=== PATIENT | female | born 1990 | race American Indian/Alaskan Native ===

== ENCOUNTER 2016-11-25 00:26 | Emergency (ER) | payer SELFPAY ==
[2016-11-25] MEDS ORDERED: TYLENOL PO ONE (03:59)
[2016-11-25] MEDS ORDERED: TORADOL IM ONE (03:59)
--- NOTE | 2016-11-25 04:04 | Emergency Department Report ---
ED Lower Extremity HPI - General Chief Complaint: Extremity Injury, Lower Stated Complaint: LEFT ANKLE INJURY/SWELLING Time Seen by Provider: 11/25/16 03:54 Source: patient, RN notes reviewed Mode of arrival: Wheelchair Limitations: No Limitations - History of Present Illness Initial Comments: This is a 26-year-old female, previously unknown to me, she presents to the ER with a left ankle inversion injury. Her significant other was seen here earlier on today for symptomatic hypoglycemia, and she reports that she rolled her ankle while assisting her boyfriend. The pain is achy, and increases with palpation and range of motion, and decreases with rest. It does not radiate anywhere. There is no knee pain. She reports she is not . She has no other injuries. She has no other complaints. MD Complaint: ankle injury -: Sudden Injury: Ankle: Left Type of Injury: inversion Place: other Severity: moderate Improves With: rest Worsens With: movement, palpation Context: fall Associated Symptoms: swelling - Related Data Previous Rx's Medication Instructions Recorded Last Taken Type Acetaminophen/Codeine [Tylenol #3] 1 tab PO Q6H PRN #20 tab 06/19/15 Unknown Rx Cyclobenzaprine [Flexeril 10 MG 10 mg PO TID PRN #30 tablet 06/19/15 Unknown Rx TAB] Ibuprofen [Motrin 600 MG tab] 600 mg PO Q8H PRN #30 tablet 10/19/16 Unknown Rx Ketorolac [Toradol] 10 mg PO Q6H PRN #20 tablet 11/25/16 Unknown Rx Allergies Allergy/AdvReac Type Severity Reaction Status Date / Time No Known Allergies Allergy Verified 06/19/15 01:39 ED Review of Systems ROS: Stated complaint: LEFT ANKLE INJURY/SWELLING Other details as noted in HPI Constitutional: denies: malaise Eyes: denies: vision change ENT: denies: epistaxis Respiratory: denies: cough Cardiovascular: denies: chest pain Gastrointestinal: denies: abdominal pain Genitourinary: denies: urgency, dysuria Musculoskeletal: arthralgia, myalgia Skin: denies: rash, lesions Neurological: denies: as per HPI, weakness Psychiatric: denies: anxiety ED Past Medical Hx - Past Medical History Previous Medical History?: Yes Hx Psychiatric Treatment: Yes (anxiety) Hx Asthma: Yes (bronchitis) Additional medical history: BRONCHITIS. ANEMIA - Surgical History Past Surgical History?: No - Social History Smoking Status: Former Smoker Substance Use Type: Marijuana - Medications Home Medications: Home Medications Medication Instructions Recorded Confirmed Last Taken Type Acetaminophen/Codeine [Tylenol #3] 1 tab PO Q6H PRN #20 tab 06/19/15 Unknown Rx Cyclobenzaprine [Flexeril 10 MG 10 mg PO TID PRN #30 tablet 06/19/15 Unknown Rx TAB] Ibuprofen [Motrin 600 MG tab] 600 mg PO Q8H PRN #30 tablet 10/19/16 Unknown Rx Ketorolac [Toradol] 10 mg PO Q6H PRN #20 tablet 11/25/16 Unknown Rx ED Physical Exam - General Limitations: Physical Limitation General appearance: alert, in no apparent distress - Head Head exam: Present: atraumatic, normocephalic - Eye Eye exam: Present: normal appearance, EOMI. Absent: nystagmus - ENT ENT exam: Present: normal exam, normal orophraynx, mucous membranes moist, normal external ear exam - Neck Neck exam: Present: normal inspection, full ROM. Absent: tenderness, meningismus - Respiratory Respiratory exam: Present: normal lung sounds bilaterally. Absent: respiratory distress, wheezes, rales, rhonchi, stridor, chest wall tenderness, accessory muscle use, decreased breath sounds, prolonged expiratory - Cardiovascular Cardiovascular Exam: Present: regular rate, normal rhythm, normal heart sounds. Absent: bradycardia, tachycardia, irregular rhythm, systolic murmur, diastolic murmur, rubs, gallop - GI/Abdominal GI/Abdominal exam: Present: soft, normal bowel sounds. Absent: distended, tenderness, guarding, rebound, rigid, pulsatile mass - Extremities Exam Extremities exam: Present: normal inspection, full ROM, tenderness, normal capillary refill, other (the left lateral ankle is tender on the lateral malleolus and the medial malleolus. The compartments are soft. There are 2+ pulses in 4 extremities, the knee is nontender.). Absent: pedal edema, joint swelling, calf tenderness - Back Exam Back exam: Present: normal inspection, full ROM. Absent: tenderness, CVA tenderness (R), CVA tenderness (L), muscle spasm, paraspinal tenderness, vertebral tenderness - Neurological Exam Neurological exam: Present: alert, oriented X3, other (Extraocular movements intact. Tongue midline. No facial droop. Facial sensation intact to light touch in the V1, V2, V3 distribution bilaterally. 5 and 5 strength in 4 extremities.. Sensation is intact to light touch in 4 extremities.). Absent: motor sensory deficit - Psychiatric Psychiatric exam: Present: normal affect, normal mood - Skin Skin exam: Present: warm, dry, intact, normal color. Absent: rash ED Course Vital Signs 11/25/16 00:46 Temperature 98.1 F Pulse Rate 91 H Respiratory 18 Rate Blood Pressure 116/81 O2 Sat by Pulse 99 Oximetry - Reevaluation(s) Reevaluation #1: 11/25/16 04:02 differential diagnosis: Ankle sprain, ankle strain, ankle fracture Assessment and plan: 26-year-old female status post mild inversion injury, no evidence of fracture or dislocation on plain films, she is neurovascularly intact, with no other obvious injuries. She will be placed in an Aircast, given crutches, and will be made nonweightbearing. She is instructed to follow- up with orthopedics or primary care. She is instructed that she'll likely be sore. Return precautions are reviewed. ED Lower Extremity MDM - Lab Data Vital Signs 11/25/16 00:46 Temperature 98.1 F Pulse Rate 91 H Respiratory 18 Rate Blood Pressure 116/81 O2 Sat by Pulse 99 Oximetry Patient reports that she is not . - Radiology Data Radiology results: image reviewed interpreted by me: Ankle x-ray of the left ankle demonstrates no acute disease. Critical care attestation.: If time is entered above; I have spent that time in minutes in the direct care of this critically ill patient, excluding procedure time. ED Disposition Clinical Impression: Left ankle injury Disposition: DISCHARGED TO HOME OR SELFCARE Is pt being admited?: No Does the pt Need Aspirin: No Condition: Stable Instructions: Ankle Sprain (ED) Additional Instructions: Rest and avoid heavy lifting. Avoid strenuous physical activity. Take the pain medications as directed. Follow-up with the primary care doctor or operating room specialist within the next week. Pain typically gets worse before it gets better. Dr. Nicolas Lozano is a local primary care doctor. Dr. Higgins, Dr. Boswell are local operating room specialist. Return to the ER right away with new pain, worsened pain, migration of pain, fevers or chills, intractable nausea or vomiting, inability to tolerate liquid feeds. Referrals: PRIMARY CARE, [Primary Care Provider] - 3-5 Days ADELITA BOSWELL MD [Staff Physician] - 3-5 Days CANELO HIGGINS MD [Staff Physician] - 3-5 Days NICOLAS LOZANO MD [Staff Physician] - 3-5 Days Forms: Work/School Release Form
[2016-11-25 04:42] VITALS: BP 110/68
--- NOTE | 2016-11-25 07:40 | XRay Report ---
LEFT ANKLE, 2 views: History: Pain after fall. Bone mineralization is normal. No acute osseous abnormality or joint pathology is identified. The soft tissues are unremarkable. IMPRESSION: Normal study.
== END 2016-11-25 04:41 | disposition home or self-care (01) ==
LOC: ED 00:26
DX: S99.912A Unspecified injury of left ankle, initial encounter (principal); F41.9 Anxiety disorder, unspecified; F12.10 Cannabis abuse, uncomplicated; J45.909 Unspecified asthma, uncomplicated; Z87.891 Personal history of nicotine dependence; W18.39XA Other fall on same level, initial encounter; Y93.89 Activity, other specified; Y99.8 Other external cause status; Y92.89 Other specified places as the place of occurrence of the external cause
CPT/HCPCS: 29515; 73600; 99283; J1885

== ENCOUNTER 2017-02-28 09:31 | Emergency (ER) | payer OTHER ==
[2017-02-28 09:58] LABS: Basophils % (Auto) 0.2 % (0.0-1.8); Hematocrit 41.7 % (30.3-42.9); Hemoglobin 14.1 gm/dl (10.1-14.3); Mean Corpuscular HGB Conc 34 % (30-34); Mean Corpuscular Hemoglobin 29 pg (28-32); Mean Corpuscular Volume 86 fl (79-97); Platelet Count 327 K/mm3 (140-440); Red Blood Count 4.87 M/mm3 (3.65-5.03); Red Cell Distribution Width 12.9 % (13.2-15.2); White Blood Count 15.2 K/mm3 (4.5-11.0)
[2017-02-28 10:12] LABS: Alanine Aminotransferase 11 units/L (7-56); Albumin 4.3 g/dL (3.9-5); Albumin/Globulin Ratio 1.5 %; Alkaline Phosphatase 60 units/L (35-129); Anion Gap 21 mmol/L; BUN/Creatinine Ratio 6.25; Blood Urea Nitrogen 5 mg/dL (7-17); Carbon Dioxide 20 mmol/L (22-30); Chloride 101.2 mmol/L (98-107); Glucose 113 mg/dL (65-100); Lipase 26 units/L (13-60); Potassium 4.4 mmol/L (3.6-5.0); Sodium 138 mmol/L (137-145); Total Protein 7.2 g/dL (6.3-8.2)
[2017-02-28 12:31] LABS: Bilirubin,Urine NEG (Negative); Blood,Urine LG (Negative); Ketones,Urine TR mg/dL (Negative); Leukocyte Esterase,Urine SM (Negative); Nitrite,Urine NEG (Negative); Urobilinogen,Urine < 2.0 mg/dL (<2.0)
[2017-02-28 13:08] LABS: Bacteria,Urine 1+ /HPF (Negative)
[2017-02-28] MEDS ORDERED: MORPHINE IV ONE ×2 (13:32→16:47)
[2017-02-28] MEDS ORDERED: ZOFRAN IV ONE (13:32)
[2017-02-28] MEDS ORDERED: NACL 0.9% 1000 ML 1,000 ML IV ONE (13:32)
[2017-02-28] MEDS ORDERED: NACL ONE (13:36)
--- NOTE | 2017-02-28 13:49 | Emergency Department Report ---
HPI - General Chief Complaint: Abdominal Pain Time Seen by Provider: 02/28/17 13:28 - HPI HPI: Is a 26-year-old Afro-[place] female presents to the emergency department with complaint of lower abdominal pain and some flank pain that is been going on since yesterday. The patient just started her menstrual cycle today but this would be abnormal for a menstrual cycle cramping or discomfort. It is associated with some nausea but no vomiting. She denies any fever, dysuria, vaginal discharge. No recent travel or sick contacts at home. She tried some Pepto-Bismol for her symptoms about any relief. She does not have a primary care doctor. She denies any past medical or surgical history. ED Past Medical Hx - Past Medical History Hx Psychiatric Treatment: Yes (anxiety) Hx Asthma: Yes (bronchitis) Additional medical history: BRONCHITIS. ANEMIA - Social History Smoking Status: Current Every Day Smoker Substance Use Type: Alcohol, Marijuana - Medications Home Medications: Home Medications Medication Instructions Recorded Confirmed Last Taken Type Acetaminophen/Codeine [Tylenol #3] 1 tab PO Q6H PRN #20 tab 06/19/15 Unknown Rx Cyclobenzaprine [Flexeril 10 MG 10 mg PO TID PRN #30 tablet 06/19/15 Unknown Rx TAB] Ibuprofen [Motrin 600 MG tab] 600 mg PO Q8H PRN #30 tablet 10/19/16 Unknown Rx Ketorolac [Toradol] 10 mg PO Q6H PRN #20 tablet 11/25/16 Unknown Rx HYDROcodone/APAP 5-325 [[place] 1 each PO Q6HR PRN #10 tablet 02/28/17 Unknown Rx 5/325] ED Review of Systems ROS: Stated complaint: ABD PAIN Other details as noted in HPI Comment: All other systems reviewed and negative Constitutional: denies: chills, fever Eyes: denies: eye pain, eye discharge, vision change ENT: denies: ear pain, throat pain Respiratory: denies: cough, shortness of breath, wheezing Cardiovascular: denies: chest pain, palpitations Gastrointestinal: abdominal pain, nausea. denies: diarrhea Genitourinary: denies: dysuria, discharge Musculoskeletal: denies: back pain, joint swelling, arthralgia Skin: denies: rash, lesions Neurological: denies: headache, weakness, paresthesias Physical Exam - Physical Exam Vital Signs: Vital Signs 02/28/17 09:35 Temperature 98.4 F Pulse Rate 121 H Respiratory 18 Rate Blood Pressure 141/86 O2 Sat by Pulse 100 Oximetry Physical Exam: GENERAL: The patient is well-developed well-nourished. HEENT: Normocephalic. Atraumatic. Extraocular motions are intact. Patient has moist mucous membranes. Pupils equal reactive to light bilaterally. NECK: Supple. Trachea is midline. CHEST/LUNGS: Clear to auscultation. There is no respiratory distress noted. HEART/CARDIOVASCULAR: Regular. There is no tachycardia. There is no gallop rub or murmur. ABDOMEN: Abdomen is soft. Unable to reproduce patient's lower abdominal and pelvic discomfort to palpation. No guarding or rebound tenderness. Patient has normal bowel sounds. There is no abdominal distention. SKIN: Skin is warm and dry. NEURO: The patient is awake, alert, and oriented. The patient is cooperative. The patient has no focal neurologic deficits. The patient has normal speech. MUSCULOSKELETAL: There is no tenderness or deformity. There is no limitation range of motion. There is no evidence of acute injury. ED Course Vital Signs 02/28/17 09:35 Temperature 98.4 F Pulse Rate 121 H Respiratory 18 Rate Blood Pressure 141/86 O2 Sat by Pulse 100 Oximetry ED Medical Decision Making - Lab Data Result diagrams: 02/28/17 09:39 02/28/17 09:39 - Radiology Data Radiology results: report reviewed CT of the abdomen and pelvis with IV contrast shows a small amount of free fluid in the pelvis. Recommend complete pelvic ultrasound to rule out ruptured cyst. Transvaginal/pelvic ultrasound shows a small complex cyst in the right ovary likely representing small hemorrhagic cyst. Consider follow-up pelvic ultrasound to ensure this resolves. Minimal nonspecific fluid is seen in the cul-de-sac. Uterus is retroverted but otherwise unremarkable. Left ovary is unremarkable. - Medical Decision Making 26-year-old female presents with acute lower abdominal and/or pelvic discomfort that started yesterday. Patient's menstrual cycle started today. She was given IV fluid, and pain medication and appears much more comfortable. Labs show a leukocytosis but otherwise there is no electrolyte abnormalities, renal insufficiency, glucose abnormalities. Urinalysis does not appear consistent with any significant urinary tract infection. There is some hematuria but the patient is on her menstrual cycle. The patient is not . CT shows some small nonspecific fluid that could be a ruptured cyst and they recommended ultrasound. Ultrasound shows a complex right ovarian cyst that could be hemorrhagic in nature. Vital signs stable throughout her ED course. She appears stable for discharge home at this time. She will get some pain medication and multiple referrals for [facility]. She will return to the ER for any worsening of her symptoms or any acute distress. - Differential Diagnosis UTI, fibroids, , ovarian cyst, torsion Critical Care Time: No Critical care attestation.: If time is entered above; I have spent that time in minutes in the direct care of this critically ill patient, excluding procedure time. ED Disposition Clinical Impression: Pelvic pain, Ovarian cyst Abdominal pain Qualifiers: Abdominal location: lower abdomen, unspecified Qualified Code(s): R10.30 - Lower abdominal pain, unspecified Disposition: TO HOME OR SELFCARE Is pt being admited?: No Condition: Stable Instructions: Ovarian Cyst (ED), Abdominal Pain (ED) Additional Instructions: Please follow-up with an [facility] in the next few days. Return to the emergency department with any worsening of your symptoms or any acute distress. You've been prescribed a medication that is sedating. Therefore this medication cannot be mixed with alcohol, or taken prior to driving, working, or being responsible for children. Prescriptions: HYDROcodone/APAP 5-325 [[place] 5/325] 1 each PO Q6HR PRN #10 tablet PRN Reason: Pain Referrals: [facility] [Provider Group] - 3-5 Days [facility] [Provider Group] - 3-5 Days [facility] [Provider Group] - 3-5 Days Time of Disposition: 16:56
--- NOTE | 2017-02-28 14:54 | Cat Scan Report ---
FINAL REPORT PROCEDURE: CT ABDOMEN PELVIS W CON TECHNIQUE: Computerized axial tomography of the abdomen and pelvis was performed after the IV injection of iodinated nonionic contrast. HISTORY: Abd pain COMPARISON: No prior studies are available for comparison. FINDINGS: Visualized lower thorax: No significant abnormality. Liver: Suspect focal fatty infiltration anterior near ligament 1.5 centimeters Hounsfield unit measurement of 60 HU.. General liver attenuation of 102 HU Spleen: Normal size and attenuation. Gallbladder and biliary system: Normal. Pancreas: Normal. Adrenals: Normal. Kidneys: Normal. GI tract: No oral contrast. Normal caliber appendix.. Fluid filled portions of large bowel without significant stool present. Decompressed or collapsed large bowel exaggerating the mucosal wall to some degree. Lymph nodes and mesentery: Normal. Vasculature: Normal. Bladder: Normal. Reproductive organs: Mildly heterogeneous uterus. Suspect free fluid in the retro cardial sac and around the adnexa. Suspect possible cysts of each ovary. Rule-out ruptured cyst. Recommend complete pelvic ultrasound evaluation.. Peritoneum: No free fluid. Musculoskeletal structures: No significant abnormality. Other: None. IMPRESSION: Small amount of free fluid in the pelvis. Recommend complete pelvic ultrasound to rule-out ruptured cyst.
--- NOTE | 2017-02-28 16:38 | Ultrasound Report ---
FINAL REPORT PROCEDURE: US PELVIS DUPLEX DOPPLER COMP TECHNIQUE: Real-time transabdominal sonography in multiple planes of the pelvis was performed. The pelvic structures were not optimally visualized. Transvaginal sonography was then performed to better evaluate the structures and/or abnormalities described below with image documentation. Grayscale, color flow Doppler imaging and velocity spectral waveform analysis of the ovaries was employed (duplex imaging). CPT 06067, 70827, and 16921 HISTORY: lower abd / pelvic pain COMPARISON: No prior studies are available for comparison. FINDINGS: Uterus is retroverted and measures 7.5 x 5.0 x 6.7 centimeters. No masses are identified. Endometrial stripe measures 12 millimeters. No fluid is seen in the endometrial canal. Minimal nonspecific free fluid is seen in the cul-de-sac. Left ovary measures 3.2 x 1.6 x 2.4 centimeter. Small peripheral follicles are visualized. Arterial flow visualized with pulsed Doppler imaging. The technologist did not document venous flow. The right ovary measures 3.5 x 1.7 x 1.6 centimeter. There is a complex cyst visualized in the right ovary with diffuse homogeneous increased echoes likely representing a hemorrhagic cyst. This measures approximately 1.2 centimeters greatest diameter. Subcentimeter follicles are also visualized. The right ovary is otherwise unremarkable. IMPRESSION: Small complex cyst right ovary likely representing small hemorrhagic cyst. Consider follow-up pelvic ultrasound to ensure this resolves. Minimal nonspecific free fluid is seen in the cul-de-sac. Uterus is retroverted otherwise is unremarkable. The left ovary is unremarkable.
--- NOTE | 2017-02-28 16:41 | Ultrasound Report ---
FINAL REPORT PROCEDURE: Transvaginal pelvic ultrasound with Doppler imaging. TECHNIQUE: Real-time transvaginal sonography in multiple planes of the pelvis was performed with image documentation. Grayscale, color flow Doppler imaging and velocity spectral waveform analysis of the ovaries was employed (duplex imaging). CPT 03370 and 57935 HISTORY: lower abd / pelvic pain COMPARISON: Transabdominal pelvic ultrasound also performed today. FINDINGS: The report for this exam was generated using images from both the transabdominal and transvaginal pelvic ultrasound both of which were performed today. Uterus is retroverted and measures 7.5 x 5.0 x 6.7 centimeters. No masses are identified. Endometrial stripe measures 12 millimeters. No fluid is seen in the endometrial canal. Minimal nonspecific free fluid is seen in the cul-de-sac. Left ovary measures 3.2 x 1.6 x 2.4 centimeter. Small peripheral follicles are visualized. Arterial flow visualized with pulsed Doppler imaging. The technologist did not document venous flow. The right ovary measures 3.5 x 1.7 x 1.6 centimeter. There is a complex cyst visualized in the right ovary with diffuse homogeneous increased echoes likely representing a hemorrhagic cyst. This measures approximately 1.2 centimeters greatest diameter. Subcentimeter follicles are also visualized. The right ovary is otherwise unremarkable. IMPRESSION: Small complex cyst right ovary likely representing small hemorrhagic cyst. Consider follow-up pelvic ultrasound to ensure this resolves. Minimal nonspecific free fluid is seen in the cul-de-sac. Uterus is retroverted otherwise is unremarkable. The left ovary is unremarkable.
[2017-02-28] MEDS ORDERED: TORADOL IV ONE (16:47)
[2017-02-28 18:16] VITALS: BP 99/69
== END 2017-02-28 18:18 | disposition home or self-care (01) ==
LOC: ED 09:31
DX: R10.2 Pelvic and perineal pain (principal); N83.201 Unspecified ovarian cyst, right side; R10.30 Lower abdominal pain, unspecified; F41.9 Anxiety disorder, unspecified; D64.9 Anemia, unspecified; F12.10 Cannabis abuse, uncomplicated; F17.200 Nicotine dependence, unspecified, uncomplicated
CPT/HCPCS: 36415; 74177; 76830; 80053; 81001; 83690; 84703; 85025; 93975; 96361; 96374; 96375; 96376; 99284; J1885; J2270; J2405; J7030; Q9967

== ENCOUNTER 2018-02-27 19:49 | Emergency (ER) | payer SELFPAY ==
[2018-02-27 20:00] VITALS: BP 114/73
[2018-02-27] MEDS ORDERED: ULTRAM PO ONE (23:45)
[2018-02-27] MEDS ORDERED: BACTRIM DS PO ONE (23:45)
--- NOTE | 2018-02-27 23:51 | Emergency Department Report ---
Abscess Boil HPI - HPI Chief Complaint: Skin/Abscess/Foreign Body Stated Complaint: BOIL LEFT THIGH Time Seen by Provider: 02/27/18 23:45 Duration: 3 Days Location: Lower Extremity Severity: Mild History: Yes Pain, Yes Purulent Drainage, Yes Previous History, No Fever, No Numbness, No Foreign Body, No Insect Bite HPI: Left inner thigh abscess 1 x 2 cm with mild surrounding cellulitis erythema no fevers no chills no nausea vomiting patient states draining on its own Home Medications: Previous Rx's Medication Instructions Recorded Last Taken Type Acetaminophen/Codeine [Tylenol #3] 1 tab PO Q6H PRN #20 tab 06/19/15 Unknown Rx Cyclobenzaprine [Flexeril 10 MG 10 mg PO TID PRN #30 tablet 06/19/15 Unknown Rx TAB] Ibuprofen [Motrin 600 MG tab] 600 mg PO Q8H PRN #30 tablet 10/19/16 Unknown Rx Ketorolac [Toradol] 10 mg PO Q6H PRN #20 tablet 11/25/16 Unknown Rx HYDROcodone/APAP 5-325 [[place] 1 each PO Q6HR PRN #10 tablet 02/28/17 Unknown Rx 5/325] Sulfamethoxazole/Trimethoprim 1 each PO BID #20 tablet 02/27/18 Unknown Rx [Bactrim DS TAB] traMADol [Ultram] 50 mg PO Q8HR PRN #9 tablet 02/27/18 Unknown Rx Allergies/Adverse Reactions: Allergies Allergy/AdvReac Type Severity Reaction Status Date / Time No Known Allergies Allergy Verified 06/19/15 01:39 ED Review of Systems ROS: Stated complaint: BOIL LEFT THIGH Other details as noted in HPI Constitutional: denies: chills, fever Eyes: denies: eye pain, eye discharge, vision change ENT: denies: ear pain, throat pain Respiratory: denies: cough, shortness of breath, wheezing Cardiovascular: denies: chest pain, palpitations Endocrine: no symptoms reported Gastrointestinal: denies: abdominal pain, nausea, diarrhea Genitourinary: denies: urgency, dysuria, discharge Musculoskeletal: denies: back pain, joint swelling, arthralgia Skin: lesions (abscess left inner thigh) Neurological: denies: headache, weakness, paresthesias Psychiatric: denies: anxiety, depression Hematological/Lymphatic: denies: easy bleeding, easy bruising ED Past Medical Hx - Past Medical History Hx Psychiatric Treatment: Yes (anxiety) Hx Asthma: Yes (bronchitis) Additional medical history: BRONCHITIS. ANEMIA - Social History Smoking Status: Current Every Day Smoker Substance Use Type: None - Medications Home Medications: Home Medications Medication Instructions Recorded Confirmed Last Taken Type Acetaminophen/Codeine [Tylenol #3] 1 tab PO Q6H PRN #20 tab 06/19/15 Unknown Rx Cyclobenzaprine [Flexeril 10 MG 10 mg PO TID PRN #30 tablet 06/19/15 Unknown Rx TAB] Ibuprofen [Motrin 600 MG tab] 600 mg PO Q8H PRN #30 tablet 10/19/16 Unknown Rx Ketorolac [Toradol] 10 mg PO Q6H PRN #20 tablet 11/25/16 Unknown Rx HYDROcodone/APAP 5-325 [[place] 1 each PO Q6HR PRN #10 tablet 02/28/17 Unknown Rx 5/325] Sulfamethoxazole/Trimethoprim 1 each PO BID #20 tablet 02/27/18 Unknown Rx [Bactrim DS TAB] traMADol [Ultram] 50 mg PO Q8HR PRN #9 tablet 02/27/18 Unknown Rx ED Abscess Boil Physical Exam - Exam General: Vital signs noted. No distress. Alert and acting appropriately. Size: 2 cm Exam: Yes Tenderness, Yes Surrounding Cellulites/Erythema, Yes Normal Neurologic Exam, Yes Normal Circulation, No Fluctuance, No Lymphangitis, No Crepitation, No Heart Murmur I & D Note - I & D Note I & D Note: Tented I&D of left inner thigh abscess wound clean with Betadine solution and anesthesia with 1% plain lidocaine straight takes stick 1 with 18- gauge needle with aspiration scant output wound is nonfluctuant mild surrounding erythema will treat for cellulitis sterile dressing applied patient tolerated procedure with minimal distress bleeding controlled patient given wound care instructions ED Course Vital Signs 02/27/18 02/27/18 19:53 20:00 Temperature 98.4 F 98.4 F Pulse Rate 99 H 99 H Respiratory 18 18 Rate Blood Pressure 114/73 114/73 O2 Sat by Pulse 100 100 Oximetry Critical care attestation.: If time is entered above; I have spent that time in minutes in the direct care of this critically ill patient, excluding procedure time. ED Medical Decision Making - Medical Decision Making Abscess left inner thigh 1 x 2 cm with mild cellulitis no fevers chills nausea vomiting plan Bactrim Ultram when necessary pain, sterile dressing intact no bleeding follow up [facility] in 2 days for wound check patient verbalizes understanding and agreement with discharge plan will be DC'd home in stable condition at this time patient to 3 to regain steady ED Disposition Clinical Impression: Abscess of left thigh Disposition: DC-01 TO HOME OR SELFCARE Is pt being admited?: No Does the pt Need Aspirin: No Condition: Good Instructions: Abscess (ED) Prescriptions: Sulfamethoxazole/Trimethoprim [Bactrim DS TAB] 1 each PO BID #20 tablet traMADol [Ultram] 50 mg PO Q8HR PRN #9 tablet PRN Reason: Pain Referrals: [facility] [Outside] - 3-5 Days Forms: Work/School Release Form(ED) Time of Disposition: 23:53
== END 2018-02-28 00:25 | disposition home or self-care (01) ==
LOC: ED 19:49
DX: L02.416 Cutaneous abscess of left lower limb (principal); J45.909 Unspecified asthma, uncomplicated; F17.200 Nicotine dependence, unspecified, uncomplicated; F41.9 Anxiety disorder, unspecified

== ENCOUNTER 2018-05-12 23:20 | Emergency (ER) | payer OTHER ==
[2018-05-13] MEDS ORDERED: TYLENOL PO ONE (00:05)
[2018-05-13] MEDS ORDERED: TYLENOL ONE ×2 (00:11→00:12)
[2018-05-13] MEDS ORDERED: MOTRIN PO ONE (05:15)
--- NOTE | 2018-05-13 05:15 | Emergency Department Report ---
HPI - General Chief Complaint: Earache Time Seen by Provider: 05/13/18 04:34 - HPI HPI: This is a 27-year-old female patient here report that she has dizziness 3 days and her ears feels clogged, nausea and fever and chills. She said she was recently admitted at [facility] for pneumonia 4 days ago and was discharged in 2017. She denies any shortness of breath or cough. Denies any chest pain or wheezing. Patient reports that she was treated and completed all her antibiotic. She said she is having right ear pain at 9 out of 10 and achy and feel clogged. Patient says she has allergies and sometimes she has to take Zyrtec because her ears bother her and she gets dizzy and she just wants to make sure that everything is okay. Patient has a history of anxiety, bronchitis and anemia and asthma. Pain is achy no alleviating or exacerbating factors. Patient says she feels better with her pneumonia but it is just her ears that feels like it is clogged and achy. No neck pain or stiffness. No medication taken. ED Past Medical Hx - Past Medical History Previous Medical History?: Yes Hx Psychiatric Treatment: Yes (anxiety) Hx Asthma: Yes Additional medical history: BRONCHITIS. ANEMIA - Surgical History Past Surgical History?: No - Family History Family history: hypertension - Social History Smoking Status: Never Smoker Substance Use Type: Marijuana - Medications Home Medications: Home Medications Medication Instructions Recorded Confirmed Last Taken Type Acetaminophen/Codeine [Tylenol #3] 1 tab PO Q6H PRN #20 tab 06/19/15 Unknown Rx Cyclobenzaprine [Flexeril 10 MG 10 mg PO TID PRN #30 tablet 06/19/15 Unknown Rx TAB] Ketorolac [Toradol] 10 mg PO Q6H PRN #20 tablet 11/25/16 Unknown Rx HYDROcodone/APAP 5-325 [[place] 1 each PO Q6HR PRN #10 tablet 02/28/17 Unknown Rx 5/325] Sulfamethoxazole/Trimethoprim 1 each PO BID #20 tablet 02/27/18 Unknown Rx [Bactrim DS TAB] Ibuprofen [Motrin 600 MG tab] 600 mg PO Q8H PRN #30 tablet 04/24/18 Unknown Rx Metaxalone [Skelaxin] 800 mg PO TID #14 tablet 04/24/18 Unknown Rx traMADol [Ultram 50 MG tab] 50 mg PO Q8HR PRN #20 tablet 04/24/18 Unknown Rx Cetirizine HCl [ZyrTEC] 10 mg PO QAM 14 Days #14 capsule 05/13/18 Unknown Rx Fluticasone [Flonase] 1 spray NS QDAY 14 Days #1 bottle 05/13/18 Unknown Rx Ibuprofen [Motrin] 600 mg PO Q8H PRN #12 tablet 05/13/18 Unknown Rx ED Review of Systems ROS: Stated complaint: DIZZY RT/EAR PAIN Other details as noted in HPI Constitutional: denies: chills, fever Eyes: denies: eye discharge, vision change ENT: ear pain. denies: throat pain, dental pain, congestion (right ear) Respiratory: denies: cough, shortness of breath, SOB with exertion, SOB at rest , stridor, wheezing Cardiovascular: denies: chest pain, palpitations, dyspnea on exertion, edema, syncope Gastrointestinal: nausea. denies: abdominal pain, vomiting, diarrhea, constipation, hematemesis, hematochezia Genitourinary: denies: urgency, dysuria, frequency, hematuria, discharge, abnormal menses Musculoskeletal: denies: back pain, joint swelling, arthralgia Skin: denies: rash, lesions Neurological: vertigo. denies: headache, weakness, numbness, paresthesias, confusion, abnormal gait Physical Exam - Physical Exam Vital Signs: Vital Signs 05/13/18 05/13/18 05/13/18 00:02 00:10 03:02 Temperature 97.9 F 98 F Pulse Rate 88 69 Respiratory 14 18 18 Rate Blood Pressure 102/70 Blood Pressure 102/65 [Left] O2 Sat by Pulse 97 99 Oximetry General: This is a 27-year-old female well-nourished well-developed in no acute distress. Patient is nontoxic in appearance. Physical Exam: Head: Normocephalic atraumatic. S Mouth: Oral mucosa moist, tongue is normal, uvula is midline, no ELEVATED GUARD or drooling , oral airways patent and uvula is Lungs: Clear to auscultated bilaterally, no rhonchi wheezes or rales. No use of accessory muscles. No chest wall tenderness. Nose: Bilateral nasal mucosa pale and boggy with clear drainage. Neck: Supple, full range of motion, no C-spine tenderness, no lymphedopathy. Ears: Bilateral TM congested without erythema. Bilateral EAC normal exam. Bilateral tract is nontender to palpate. Bilateral mastoid bone nontender to palpate. CV: S1, S2. Regular rate rhythm negative murmur. Eyes: Bilateral pupils equal and reactive to light, conjunctival injection or icterus. Bilateral EOM intact and normal accommodation. No nystagmus. Lids are normal. nontender to palpate. No induration and no sign of cellulitis. Skin: Clean dry and intact, no rash or lesions. Neurological: GCS of 15, alert and oriented 3, negative Romberg, negative pronator drift, normal gait, reflexes are normal, no motor or sensory deficit. Speech is clear and fluid and no facial drooping. Extremity: No cce. + 2 pulses in all extremities, no neurovascular compromise.No laceration, bruises then or contusion noted to extremities. Negative Homans signs bilaterally. No palpable cord bilateral lower extremity. Musculoskeletal: Full Range of motion in all extremities, no joint crepitus, erythema or effusion. Mood: Normal mood and behavior ED Course Vital Signs 05/13/18 05/13/18 05/13/18 00:02 00:10 03:02 Temperature 97.9 F 98 F Pulse Rate 88 69 Respiratory 14 18 18 Rate Blood Pressure 102/70 Blood Pressure 102/65 [Left] O2 Sat by Pulse 97 99 Oximetry - Reevaluation(s) Reevaluation #1: 05/13/18 07:57 Patient given Motrin 800 mg by mouth for right ear pain. Pain has been relieved. Patient does not have any fever upon arrival to emergency room. ED Medical Decision Making - EKG Data -: EKG Interpreted by Me (attending physician) EKG shows normal: sinus rhythm - Medical Decision Making This 27-year-old female well-nourished well-developed in no acute distress. She is recently treated at [facility] for pneumonia and she says she was there for 4 days but she is recovered from that. She said pneumonia was secondary to her asthma and chronic bronchitis. She says she still has symptoms of ear pain and clogged ear sensation right ear pain. She says she had fever or she feels like she had fever but patient did not have any fever on her vital signs are stable. Assessment/plan 1: Allergic rhinitis-patient will be sent home on Zyrtec and Flonase 2: Otalgia-patient given Motrin 800 mg by mouth with positive relief. I Discussed with patient her diagnosis and treatment plan and that she needs to follow up with her primary care physician. Patient does have access to medical care. But she does not have a primary care doctor so I will refer her to Dr. Darci martinez was a primary care on-call and also discuss outside Medical Center. I told her she needs to follow up with primary care to manage her chronic asthma and bronchitis. I told her she needs to follow up on 05/16/2018 and she voiced understanding. I discussed with patient that if she develops a fever that she can take Motrin every 8 hours and increase her fluid intake but as for now she has allergic rhinitis and earache and I discussed treatment plan with her and she is in agreement. Patient discharged home with prescription for Zyrtec, Flonase and Motrin. Critical care attestation.: If time is entered above; I have spent that time in minutes in the direct care of this critically ill patient, excluding procedure time. ED Disposition Clinical Impression: Otalgia of right ear Allergic rhinitis Qualifiers: Allergic rhinitis trigger: unspecified Allergic rhinitis seasonality: unspecified Qualified Code(s): J30.9 - Allergic rhinitis, unspecified Disposition: - TO HOME OR SELFCARE Is pt being admited?: No Does the pt Need Aspirin: No Condition: Stable Instructions: Earache (ED), Allergic Rhinitis (ED) Additional Instructions: Follow-up with primary care physician in 3 days as instructed he can follow-up with primary care that I refer you to in discharge instruction paperwork or he can follow up with your own primary care if you have one. If your condition worsens to include difficulty breathing, swallowing, chest pain, nausea and vomiting and fever, please return to the emergency room TIAN. Take Zyrtec and Flonase to relieve congestion Increasing fluid intake Use nasal saline wash to flush and nostrils. Referrals: PRIMARY MD JUSTICE [Primary Care Provider] - 05/16/18 [facility] [Outside] - 05/16/18 LISSA VIERA MD [Staff Physician] - 05/16/18 Forms: Work/School Release Form(ED)
[2018-05-13 08:26] VITALS: BP 108/62
== END 2018-05-13 08:22 | disposition home or self-care (01) ==
LOC: ED 23:20
DX: H92.01 Otalgia, right ear (principal); J45.909 Unspecified asthma, uncomplicated; F12.90 Cannabis use, unspecified, uncomplicated
CPT/HCPCS: 93005; 93010; 99282

== ENCOUNTER 2019-01-31 00:13 | Emergency (ER) | payer OTHER ==
[2019-01-31] MEDS ORDERED: DUONEB *Not for PRN Use IH ONE (00:19)
[2019-01-31] MEDS ORDERED: ATROVENT IH ONE ×3 (00:32→00:40)
[2019-01-31] MEDS ORDERED: MAGNESIUM SULFATE 2GM/50ML 2 GM/50 ML BAG IV ONE ×2 (00:33→00:39)
[2019-01-31] MEDS ORDERED: SOLU-Medrol ONE (00:33)
[2019-01-31] MEDS ORDERED: PROVENTIL IH ONE ×3 (00:33→00:40)
[2019-01-31] MEDS ORDERED: SOLU-Medrol IM ONE (00:39)
[2019-01-31] MEDS ORDERED: SOLU-Medrol IV ONE ×2 (00:40→00:41)
[2019-01-31 02:55] VITALS: BP 121/68
--- NOTE | 2019-01-31 03:03 | Emergency Department Report ---
ED Shortness of Breath HPI - General Chief Complaint: Dyspnea/Respdistress Stated Complaint: SOB Time Seen by Provider: 01/31/19 00:39 Source: patient Mode of arrival: Ambulatory Limitations: No Limitations - History of Present Illness Initial Comments: 28-year-old female with history of asthma presents to ED with difficulty breathing that started tonight. Patient states she ran out of her inhaler. Reports productive cough which also started today, denies fever. Patient is currently 6 months . MD Complaint: "asthma attack" -: This evening Severity: moderate Consistency: constant Improves With: nothing Worsens With: exertion Known History Of: asthma Associated Symptoms: cough Treatments Prior to Arrival: none - Related Data Previous Rx's Medication Instructions Recorded Last Taken Type Acetaminophen/Codeine [Tylenol #3] 1 tab PO Q6H PRN #20 tab 06/19/15 Unknown Rx Cyclobenzaprine [Flexeril 10 MG 10 mg PO TID PRN #30 tablet 06/19/15 Unknown Rx TAB] Ketorolac [Toradol] 10 mg PO Q6H PRN #20 tablet 11/25/16 Unknown Rx HYDROcodone/APAP 5-325 [[place] 1 each PO Q6HR PRN #10 tablet 02/28/17 Unknown Rx 5/325] Sulfamethoxazole/Trimethoprim 1 each PO BID #20 tablet 02/27/18 Unknown Rx [Bactrim DS TAB] Ibuprofen [Motrin 600 MG tab] 600 mg PO Q8H PRN #30 tablet 04/24/18 Unknown Rx Metaxalone [Skelaxin] 800 mg PO TID #14 tablet 04/24/18 Unknown Rx traMADol [Ultram 50 MG tab] 50 mg PO Q8HR PRN #20 tablet 04/24/18 Unknown Rx Cetirizine HCl [ZyrTEC] 10 mg PO QAM 14 Days #14 capsule 05/13/18 Unknown Rx Fluticasone [Flonase] 1 spray NS QDAY 14 Days #1 bottle 05/13/18 Unknown Rx Ibuprofen [Motrin] 600 mg PO Q8H PRN #12 tablet 05/13/18 Unknown Rx Albuterol Sulfate [Proventil Hfa] 2 puff IH Q4HR PRN #1 hfa.aer.ad 01/31/19 Unknown Rx Allergies Allergy/AdvReac Type Severity Reaction Status Date / Time No Known Allergies Allergy Verified 11/04/15 01:39 ED Review of Systems ROS: Stated complaint: SOB Other details as noted in HPI Comment: All other systems reviewed and negative Constitutional: denies: chills, fever Respiratory: cough, wheezing Cardiovascular: denies: chest pain Gastrointestinal: denies: abdominal pain ED Past Medical Hx - Past Medical History Previous Medical History?: Yes Hx Psychiatric Treatment: Yes (anxiety) Hx Asthma: Yes Additional medical history: BRONCHITIS. ANEMIA - Surgical History Past Surgical History?: No - Social History Smoking Status: Never Smoker Substance Use Type: None - Medications Home Medications: Home Medications Medication Instructions Recorded Confirmed Last Taken Type Acetaminophen/Codeine [Tylenol #3] 1 tab PO Q6H PRN #20 tab 06/19/15 Unknown Rx Cyclobenzaprine [Flexeril 10 MG 10 mg PO TID PRN #30 tablet 06/19/15 Unknown Rx TAB] Ketorolac [Toradol] 10 mg PO Q6H PRN #20 tablet 11/25/16 Unknown Rx HYDROcodone/APAP 5-325 [[place] 1 each PO Q6HR PRN #10 tablet 02/28/17 Unknown Rx 5/325] Sulfamethoxazole/Trimethoprim 1 each PO BID #20 tablet 02/27/18 Unknown Rx [Bactrim DS TAB] Ibuprofen [Motrin 600 MG tab] 600 mg PO Q8H PRN #30 tablet 04/24/18 Unknown Rx Metaxalone [Skelaxin] 800 mg PO TID #14 tablet 04/24/18 Unknown Rx traMADol [Ultram 50 MG tab] 50 mg PO Q8HR PRN #20 tablet 04/24/18 Unknown Rx Cetirizine HCl [ZyrTEC] 10 mg PO QAM 14 Days #14 capsule 05/13/18 Unknown Rx Fluticasone [Flonase] 1 spray NS QDAY 14 Days #1 bottle 05/13/18 Unknown Rx Ibuprofen [Motrin] 600 mg PO Q8H PRN #12 tablet 05/13/18 Unknown Rx Albuterol Sulfate [Proventil Hfa] 2 puff IH Q4HR PRN #1 hfa.aer.ad 01/31/19 Unknown Rx ED Physical Exam - General Limitations: No Limitations General appearance: alert - Head Head exam: Present: atraumatic, normocephalic - Eye Eye exam: Present: normal appearance - ENT ENT exam: Present: mucous membranes moist - Neck Neck exam: Present: normal inspection - Respiratory Respiratory exam: Present: respiratory distress, wheezes, decreased breath sounds - Cardiovascular Cardiovascular Exam: Present: normal rhythm, tachycardia - GI/Abdominal GI/Abdominal exam: Present: soft, other (gravid abdomen). Absent: tenderness - Extremities Exam Extremities exam: Present: normal inspection. Absent: calf tenderness - Neurological Exam Neurological exam: Present: alert, oriented X3 - Psychiatric Psychiatric exam: Present: normal affect, normal mood - Skin Skin exam: Present: warm, dry, intact, normal color ED Course Vital Signs 01/31/19 01/31/19 01/31/19 00:16 00:30 00:42 Temperature 97.8 F Pulse Rate 101 H Pulse Rate [ 88 99 H Anterior Bilateral Throughout] Respiratory 18 Rate Respiratory 20 18 Rate [Anterior Bilateral Throughout] Blood Pressure 113/80 Blood Pressure [Left] O2 Sat by Pulse 98 Oximetry 01/31/19 01/31/19 01/31/19 00:53 01:57 02:55 Temperature Pulse Rate 117 H 103 H Pulse Rate [ 106 H Anterior Bilateral Throughout] Respiratory 20 19 Rate Respiratory 16 Rate [Anterior Bilateral Throughout] Blood Pressure Blood Pressure 122/58 121/68 [Left] O2 Sat by Pulse 97 98 Oximetry - Reevaluation(s) Reevaluation #1: 01/31/19 03:02 Pt received 1-hour albuterol nebs, mag sulfate, solumedrol. Feeling much better at this time. Ambulated around ED with ARAM Chinchilla, no desaturation. Pt remained 100% RA. Critical Care Time: Yes Critical care time in (mins) excluding proc time.: 35 Critical care attestation.: If time is entered above; I have spent that time in minutes in the direct care of this critically ill patient, excluding procedure time. Critical Care Time: 35 minutes ED Disposition Clinical Impression: Asthma with acute exacerbation Disposition: - TO HOME OR SELFCARE Is pt being admited?: No Condition: Stable Instructions: Asthma (ED) Prescriptions: Albuterol Sulfate [Proventil Hfa] 2 puff IH Q4HR PRN #1 hfa.aer.ad PRN Reason: Wheezing Referrals: [facility] MD ROSALIA [Primary Care Provider] - 3-5 Days PRIMARY CAREMD [Referring] - 3-5 Days Time of Disposition: 03:04
== END 2019-01-31 03:18 | disposition home or self-care (01) ==
LOC: ED 00:13
DX: J45.901 Unspecified asthma with (acute) exacerbation (principal); F41.9 Anxiety disorder, unspecified; D64.9 Anemia, unspecified
CPT/HCPCS: 94640; 94644; 96365; 96375; 99283; J2930; J3475

== ENCOUNTER 2019-04-05 12:24 | Emergency (ER) | payer MEDICAID ==
--- NOTE | 2019-04-05 12:32 | Event Note ---
ED Screening Note ED Screening Note: pt presents with SOB/wheezing x 2 days dry cough pt is 35 weeks PMHx asthma cannot find her asthma pump This initial assessment/diagnostic orders/clinical plan/treatment(s) is/are subject to change based on patients health status, clinical progression and re- assessment by fellow clinical providers in the ED. Further treatment and workup at subsequent clinical providers discretion. Patient/guardian urged not to elope from the ED as their condition may be serious if not clinically assessed and managed. will send to main for further tx wheezing on exam
[2019-04-05] MEDS ORDERED: ATROVENT IH ONE (12:51)
[2019-04-05] MEDS ORDERED: SOLU-Medrol IV ONE (12:51)
[2019-04-05] MEDS ORDERED: PROVENTIL IH ONE (12:51)
[2019-04-05 13:16] VITALS: BP 116/70
--- NOTE | 2019-04-05 13:53 | Emergency Department Report ---
ED General Adult HPI - General Chief complaint: Adult Asthma Stated complaint: 35 WKS /ASTHMA/CT Time Seen by Provider: 04/05/19 12:30 Source: patient Mode of arrival: Ambulatory Limitations: No Limitations - History of Present Illness Initial comments: patient presents to the ED for an Asthma attack. The patient is 35 weeks and states her daughter has been sick for the last couple of days and now she has a cough,cold and congestion. Patient states her asthma is usually controlled unless she gets a cold. Patient denies any chest pain, abdominal pain, vaginal bleeding, vaginal discharge, or contractions. Patient denies having an albuterol pump at home and comes to the ED for breathing treatment -: Gradual Severity scale (0 -10): 0 Consistency: constant Improves with: none Worsens with: none Associated Symptoms: denies other symptoms Treatments Prior to Arrival: none - Related Data Previous Rx's Medication Instructions Recorded Last Taken Type Acetaminophen/Codeine [Tylenol #3] 1 tab PO Q6H PRN #20 tab 06/19/15 Unknown Rx Cyclobenzaprine [Flexeril 10 MG 10 mg PO TID PRN #30 tablet 06/19/15 Unknown Rx TAB] Ketorolac [Toradol] 10 mg PO Q6H PRN #20 tablet 11/25/16 Unknown Rx HYDROcodone/APAP 5-325 [[place] 1 each PO Q6HR PRN #10 tablet 02/28/17 Unknown Rx 5/325] Sulfamethoxazole/Trimethoprim 1 each PO BID #20 tablet 02/27/18 Unknown Rx [Bactrim DS TAB] Ibuprofen [Motrin 600 MG tab] 600 mg PO Q8H PRN #30 tablet 04/24/18 Unknown Rx Metaxalone [Skelaxin] 800 mg PO TID #14 tablet 04/24/18 Unknown Rx traMADol [Ultram 50 MG tab] 50 mg PO Q8HR PRN #20 tablet 04/24/18 Unknown Rx Cetirizine HCl [ZyrTEC] 10 mg PO QAM 14 Days #14 capsule 05/13/18 Unknown Rx Fluticasone [Flonase] 1 spray NS QDAY 14 Days #1 bottle 05/13/18 Unknown Rx Ibuprofen [Motrin] 600 mg PO Q8H PRN #12 tablet 05/13/18 Unknown Rx Albuterol Sulfate [Proventil Hfa] 2 puff IH Q4HR PRN #1 hfa.aer.ad 01/31/19 Unknown Rx ALBUTEROL Inhaler (OR & NICU) 2 puff IH Q4HR PRN #1 inhalation 04/05/19 Unknown Rx [ProAir HFA Inhaler] Allergies Allergy/AdvReac Type Severity Reaction Status Date / Time No Known Allergies Allergy Verified 04/05/19 12:25 ED Review of Systems ROS: Stated complaint: 35 WKS /ASTHMA/CT Other details as noted in HPI Comment: All other systems reviewed and negative Constitutional: denies: chills, fever Eyes: denies: eye pain, eye discharge, vision change ENT: denies: ear pain, throat pain Respiratory: shortness of breath. denies: cough, wheezing Cardiovascular: denies: chest pain, palpitations Endocrine: no symptoms reported Gastrointestinal: denies: abdominal pain, nausea, diarrhea Genitourinary: denies: urgency, dysuria, discharge Musculoskeletal: denies: back pain, joint swelling, arthralgia Skin: denies: rash, lesions Neurological: denies: headache, weakness, paresthesias Psychiatric: denies: anxiety, depression Hematological/Lymphatic: denies: easy bleeding, easy bruising ED Past Medical Hx - Past Medical History Hx Psychiatric Treatment: Yes (anxiety) Hx Asthma: Yes Additional medical history: BRONCHITIS. ANEMIA - Social History Smoking Status: Never Smoker Substance Use Type: None - Medications Home Medications: Home Medications Medication Instructions Recorded Confirmed Last Taken Type Acetaminophen/Codeine [Tylenol #3] 1 tab PO Q6H PRN #20 tab 06/19/15 Unknown Rx Cyclobenzaprine [Flexeril 10 MG 10 mg PO TID PRN #30 tablet 06/19/15 Unknown Rx TAB] Ketorolac [Toradol] 10 mg PO Q6H PRN #20 tablet 11/25/16 Unknown Rx HYDROcodone/APAP 5-325 [[place] 1 each PO Q6HR PRN #10 tablet 02/28/17 Unknown Rx 5/325] Sulfamethoxazole/Trimethoprim 1 each PO BID #20 tablet 02/27/18 Unknown Rx [Bactrim DS TAB] Ibuprofen [Motrin 600 MG tab] 600 mg PO Q8H PRN #30 tablet 04/24/18 Unknown Rx Metaxalone [Skelaxin] 800 mg PO TID #14 tablet 04/24/18 Unknown Rx traMADol [Ultram 50 MG tab] 50 mg PO Q8HR PRN #20 tablet 04/24/18 Unknown Rx Cetirizine HCl [ZyrTEC] 10 mg PO QAM 14 Days #14 capsule 05/13/18 Unknown Rx Fluticasone [Flonase] 1 spray NS QDAY 14 Days #1 bottle 05/13/18 Unknown Rx Ibuprofen [Motrin] 600 mg PO Q8H PRN #12 tablet 05/13/18 Unknown Rx Albuterol Sulfate [Proventil Hfa] 2 puff IH Q4HR PRN #1 hfa.aer.ad 01/31/19 Unknown Rx ALBUTEROL Inhaler (OR & NICU) 2 puff IH Q4HR PRN #1 inhalation 04/05/19 Unknown Rx [ProAir HFA Inhaler] ED Physical Exam - General Limitations: No Limitations General appearance: alert, in no apparent distress - Head Head exam: Present: atraumatic, normocephalic - Eye Eye exam: Present: normal appearance - ENT ENT exam: Present: mucous membranes moist - Neck Neck exam: Present: normal inspection - Respiratory Respiratory exam: Present: wheezes. Absent: respiratory distress - Cardiovascular Cardiovascular Exam: Present: regular rate, normal rhythm. Absent: systolic murmur, diastolic murmur, rubs, gallop - GI/Abdominal GI/Abdominal exam: Present: soft, distended (Gravid Uterus), normal bowel sounds. Absent: tenderness - Extremities Exam Extremities exam: Present: normal inspection - Back Exam Back exam: Present: normal inspection - Neurological Exam Neurological exam: Present: alert, oriented X3, CN II-XII intact. Absent: motor sensory deficit - Psychiatric Psychiatric exam: Present: normal affect, normal mood - Skin Skin exam: Present: warm, dry, intact, normal color. Absent: rash ED Course Vital Signs 04/05/19 04/05/19 04/05/19 12:30 13:13 13:14 Temperature 98.3 F 98.2 F Pulse Rate 126 H 107 H Respiratory 18 18 18 Rate Blood Pressure 139/77 Blood Pressure 116/70 [Left] O2 Sat by Pulse 98 100 99 Oximetry ED Medical Decision Making - Medical Decision Making Patient had a continuous breathing treatment in the ED with symptoms greatly improved Repeat lung exam at 2:45 PM shows clinical improvement with minimal respiratory wheezes Critical care attestation.: If time is entered above; I have spent that time in minutes in the direct care of this critically ill patient, excluding procedure time. ED Disposition Clinical Impression: Asthma, Acute asthma exacerbation Disposition: DC-01 TO HOME OR SELFCARE Is pt being admited?: No Does the pt Need Aspirin: No Condition: Stable Instructions: Asthma (ED) Additional Instructions: return if worse Referrals: DAKOTA FENG MD [Primary Care Provider] - 3-5 Days Time of Disposition: 14:56
== END 2019-04-05 15:20 | disposition home or self-care (01) ==
LOC: ED 12:24
DX: O99.513 Diseases of the respiratory system complicating pregnancy, third trimester (principal); J45.901 Unspecified asthma with (acute) exacerbation; Z3A.35 35 weeks gestation of pregnancy
CPT/HCPCS: 96374; 99283; J2930

== ENCOUNTER 2019-04-10 00:48 | Outpatient (CLI) | payer MEDICAID, OTHER ==
--- NOTE | 2019-04-10 03:31 | Ultrasound Report ---
OB ultrasound with biophysical profile. 04/10/2019. HISTORY: Possible abruption. FINDINGS: A viable intrauterine in the cephalic position has heart tones of 146 bpm. No abruption is identified. JUAN DIEGO is 15.4. Biophysical profile is 8 of 8. IMPRESSION: 1. Negative for abruption. 2. Biophysical profile 8 of 8. Signer Name: Vince Sin MD Signed: 04/10/2019 3:26 AM Workstation Name: [id number]
--- NOTE | 2019-04-10 07:28 | Progress Note ---
Assessment and Plan A: at 36 weeks gestation. Not in active labor. Reactive NST; Normal BPP and JUAN DIEGO. P: Advised patient re: signs of labor, daily movement counting, warning signs of late . Advised patient to follow up as scheduled at [facility]. Subjective - Subjective Date of service: 04/10/19 Principal diagnosis: at 36 weeks; R/O labor Interval history: at 36 weeks gestation presents to rule out labor. Contractions today. No leaking of water or bleeding. Some abdominal pain. Was on her feet a lot yesterday. Patient reports: movement normal, contractions, no loss of fluid, no vaginal bleeding Objective - Exam Narrative Exam: BPP 8/8. Normal JUAN DIEGO. Placenta appears normal on US. Abdomen: Present: normal appearance, soft. Absent: distention, tenderness, guarding, rigidity Uterus: Present: normal, fundal height above umbilicus. Absent: tenderness FHR: category 1 Uterine Contraction Monitor Mode: External Cervical Dilatation: 0 Cervical Effacement Percentage: 10 station: -4 Uterine Contraction Pattern: Irregular Uterine Contraction Intensity: Mild Extremities: normal
== END 2019-04-10 03:23 | disposition home or self-care (01) ==
LOC: TRG 00:48
PROVIDERS: ATTEND Obstetrics & Gynecology
DX: O62.8 Other abnormalities of forces of labor (principal); Z3A.36 36 weeks gestation of pregnancy
CPT/HCPCS: 59025; 76815; 76819

== ENCOUNTER 2019-05-25 00:10 | Emergency (ER) | payer MEDICAID ==
[2019-05-25] MEDS ORDERED: SULFAMETHOXAZOLE/TRIMETHOPRIM 800/160MG DS TAB PO ONE (01:28)
[2019-05-25] MEDS ORDERED: oxyCODONE /ACETAMINOPHEN 5-325MG TAB PO ONE (01:28)
[2019-05-25] MEDS ORDERED: CLINDAMYCIN 300 MG CAP PO ONE (01:28)
[2019-05-25] MEDS ORDERED: LIDOCAINE-MPF (1%) 10 MG/1 ML VIAL 5 ML INFILTRATI ONE ×2 (01:28→05:10)
[2019-05-25] MEDS ORDERED: KETOROLAC 30 MG/1 ML INJ IM ONE (01:28)
[2019-05-25] MEDS ORDERED: ONDANSETRON 4 MG ODT TAB PO ONE (01:28)
[2019-05-25] MEDS ORDERED: LIDOCAINE-MPF (1%) 10 MG/1 ML VIAL 5 ML ONE (04:29)
--- NOTE | 2019-05-25 05:00 | Emergency Department Report ---
- General Chief Complaint: Skin/Abscess/Foreign Body Stated Complaint: BUMPS ON INNER THIGHS Source: patient, EMS Mode of arrival: Wheelchair Limitations: No Limitations - History of Present Illness Initial Comments: Patient is a 28-year-old -[place] female with no past medical history who presents to the ED with complaint of acute onset persistent severe painful swollen erythematous fluctuant maculopapular rash on the right inguinal area for the last 2 days. Patient states that she is 2 weeks to a . Patient denies fever, chills, nausea, vomiting, dizziness, headache, chest pain, vaginal bleeding, vaginal discharge, back pain, syncope, chest pain or shortness of breath. -: Sudden, days(s) (4) Location: other (right inguinal area) Extremity Location: Right: Hip (right inguinal area) Place: home Patient Tetanus UTD: Yes Context: other (spontaneous) Associated Symptoms: pain. denies: loss of feeling/numbness, suspect foreign body present, unable to move injured part, weakness followed by dizziness, nausea/vomiting, fever Treatments Prior to Arrival: NSAIDS - Related Data Previous Rx's Medication Instructions Recorded Last Taken Type Acetaminophen/Codeine [Tylenol #3] 1 tab PO Q6H PRN #20 tab 06/19/15 Unknown Rx Cyclobenzaprine [Flexeril 10 MG 10 mg PO TID PRN #30 tablet 06/19/15 Unknown Rx TAB] Ketorolac [Toradol] 10 mg PO Q6H PRN #20 tablet 11/25/16 Unknown Rx HYDROcodone/APAP 5-325 [[place] 1 each PO Q6HR PRN #10 tablet 02/28/17 Unknown Rx 5/325] Sulfamethoxazole/Trimethoprim 1 each PO BID #20 tablet 02/27/18 Unknown Rx [Bactrim DS TAB] Ibuprofen [Motrin 600 MG tab] 600 mg PO Q8H PRN #30 tablet 04/24/18 Unknown Rx Metaxalone [Skelaxin] 800 mg PO TID #14 tablet 04/24/18 Unknown Rx traMADol [Ultram 50 MG tab] 50 mg PO Q8HR PRN #20 tablet 04/24/18 Unknown Rx Cetirizine HCl [ZyrTEC] 10 mg PO QAM 14 Days #14 capsule 05/13/18 Unknown Rx Fluticasone [Flonase] 1 spray NS QDAY 14 Days #1 bottle 05/13/18 Unknown Rx Ibuprofen [Motrin] 600 mg PO Q8H PRN #12 tablet 05/13/18 Unknown Rx Albuterol Sulfate [Proventil Hfa] 2 puff IH Q4HR PRN #1 hfa.aer.ad 01/31/19 Unknown Rx ALBUTEROL Inhaler (OR & NICU) 2 puff IH Q4HR PRN #1 inhalation 04/05/19 Unknown Rx [ProAir HFA Inhaler] Acetaminophen/Codeine [Tylenol 1 tab PO Q6H PRN #12 tab 05/25/19 Unknown Rx /Codeine # 3 tab] Clindamycin [Clindamycin CAP] 300 mg PO Q8HR #60 capsule 05/25/19 Unknown Rx Ibuprofen [Motrin] 800 mg PO Q8HR PRN #24 tablet 05/25/19 Unknown Rx Ondansetron [Zofran Odt] 4 mg PO Q6HR PRN #15 tab.rapdis 05/25/19 Unknown Rx Sulfamethoxazole/Trimethoprim 1 each PO Q12H #20 tablet 05/25/19 Unknown Rx [Bactrim DS TAB] Allergies Allergy/AdvReac Type Severity Reaction Status Date / Time No Known Allergies Allergy Verified 04/05/19 12:25 ED Review of Systems ROS: Stated complaint: BUMPS ON INNER THIGHS Other details as noted in HPI Constitutional: denies: chills, fever Eyes: denies: eye pain, eye discharge, vision change ENT: denies: ear pain, throat pain Respiratory: denies: cough, shortness of breath, wheezing Cardiovascular: denies: chest pain, palpitations Endocrine: no symptoms reported Gastrointestinal: denies: abdominal pain, nausea, diarrhea Genitourinary: denies: urgency, dysuria, discharge Musculoskeletal: arthralgia (right hip and inguinal area due to swollen erythematous maculopapular fluctuant rash), myalgia. denies: back pain, joint swelling Skin: denies: rash, lesions Neurological: denies: headache, weakness, paresthesias Psychiatric: denies: anxiety, depression Hematological/Lymphatic: denies: easy bleeding, easy bruising ED Past Medical Hx - Past Medical History Hx Hypertension: No Hx Diabetes: No Hx Deep Vein Thrombosis: No Hx Renal Disease: No Hx Sickle Cell Disease: No Hx Seizures: No Hx Psychiatric Treatment: Yes (anxiety) Hx Asthma: Yes (On inhalersa PRN) Hx HIV: No Additional medical history: BRONCHITIS. ANEMIA - Surgical History Past Surgical History?: Yes Additional Surgical History: anxiety - Social History Smoking Status: Never Smoker Substance Use Type: None - Medications Home Medications: Home Medications Medication Instructions Recorded Confirmed Last Taken Type Acetaminophen/Codeine [Tylenol #3] 1 tab PO Q6H PRN #20 tab 06/19/15 Unknown Rx Cyclobenzaprine [Flexeril 10 MG 10 mg PO TID PRN #30 tablet 06/19/15 Unknown Rx TAB] Ketorolac [Toradol] 10 mg PO Q6H PRN #20 tablet 11/25/16 Unknown Rx HYDROcodone/APAP 5-325 [[place] 1 each PO Q6HR PRN #10 tablet 02/28/17 Unknown Rx 5/325] Sulfamethoxazole/Trimethoprim 1 each PO BID #20 tablet 02/27/18 Unknown Rx [Bactrim DS TAB] Ibuprofen [Motrin 600 MG tab] 600 mg PO Q8H PRN #30 tablet 04/24/18 Unknown Rx Metaxalone [Skelaxin] 800 mg PO TID #14 tablet 04/24/18 Unknown Rx traMADol [Ultram 50 MG tab] 50 mg PO Q8HR PRN #20 tablet 04/24/18 Unknown Rx Cetirizine HCl [ZyrTEC] 10 mg PO QAM 14 Days #14 capsule 05/13/18 Unknown Rx Fluticasone [Flonase] 1 spray NS QDAY 14 Days #1 bottle 05/13/18 Unknown Rx Ibuprofen [Motrin] 600 mg PO Q8H PRN #12 tablet 05/13/18 Unknown Rx Albuterol Sulfate [Proventil Hfa] 2 puff IH Q4HR PRN #1 hfa.aer.ad 01/31/19 Unknown Rx ALBUTEROL Inhaler (OR & NICU) 2 puff IH Q4HR PRN #1 inhalation 04/05/19 Unknown Rx [ProAir HFA Inhaler] Acetaminophen/Codeine [Tylenol 1 tab PO Q6H PRN #12 tab 05/25/19 Unknown Rx /Codeine # 3 tab] Clindamycin [Clindamycin CAP] 300 mg PO Q8HR #60 capsule 05/25/19 Unknown Rx Ibuprofen [Motrin] 800 mg PO Q8HR PRN #24 tablet 05/25/19 Unknown Rx Ondansetron [Zofran Odt] 4 mg PO Q6HR PRN #15 tab.rapdis 05/25/19 Unknown Rx Sulfamethoxazole/Trimethoprim 1 each PO Q12H #20 tablet 05/25/19 Unknown Rx [Bactrim DS TAB] ED Physical Exam - General Limitations: No Limitations General appearance: alert, in no apparent distress - Head Head exam: Present: atraumatic, normocephalic, normal inspection - Eye Eye exam: Present: normal appearance, PERRL, EOMI Pupils: Present: normal accommodation - ENT ENT exam: Present: normal exam, normal orophraynx, mucous membranes moist, TM's normal bilaterally, normal external ear exam - Neck Neck exam: Present: normal inspection, full ROM - Respiratory Respiratory exam: Present: normal lung sounds bilaterally. Absent: respiratory distress, wheezes, rales, chest wall tenderness, accessory muscle use, decreased breath sounds - Cardiovascular Cardiovascular Exam: Present: regular rate, normal rhythm, normal heart sounds. Absent: systolic murmur, diastolic murmur, rubs, gallop - GI/Abdominal GI/Abdominal exam: Present: soft, normal bowel sounds. Absent: tenderness, guarding, rebound, hypoactive bowel sounds, organomegaly - Extremities Exam Extremities exam: Present: normal inspection, full ROM, normal capillary refill - Back Exam Back exam: Present: normal inspection, full ROM. Absent: tenderness, muscle spasm, paraspinal tenderness - Neurological Exam Neurological exam: Present: alert, oriented X3, CN II-XII intact, normal gait, reflexes normal - Psychiatric Psychiatric exam: Present: normal affect, normal mood - Skin Skin exam: Present: warm, dry, intact, normal color, rash (swollen, severely tender right inguinal fluctuant maculopapular erythematous rash) ED Course Vital Signs 05/25/19 05/25/19 05/25/19 00:13 01:39 01:44 Temperature 97.8 F Pulse Rate 74 Respiratory 18 19 Rate Blood Pressure 129/90 O2 Sat by Pulse 99 Oximetry - Reevaluation(s) Reevaluation #1: 05/25/19 04:58 This is a 28-year-old female who presented to the ED with component of acute onset erythematous maculopapular fluctuant rash on right inguinal area with severe pain for 2 days. In the ED, patient is alert and oriented 3 and is not in distress but appears to be in pain. Patient was treated for pain in the ED and also given oral antibiotics. The right inguinal fluctuant maculopapular rash was cleaned thoroughly and incised and drained per protocol. Patient tolerated the procedure well. Patient was discharged home on medications and antibiotics and advised to follow-up with her primary care physician in 7-10 days for reevaluation. Patient was also advised to return to the ED immediately if symptoms get worse. Patient was otherwise advised to return to the ED in 2 days for wound recheck and packing removal. - I & D Right Medial Hip Type of Procedure: Simple (right inguinal area) Site: 3 cm x 3 cm Blade Size: 11 I & D Procedure: betadine prep, sterile drapes applied, sterile dressing applied, gauze wick placed Progress: Patient tolerated the procedure well. Patient was discharged home on antibiotics and advised to return to the ED in 2 days for wound recheck and packing removal. Patient was otherwise advised to follow-up with her primary care physician in 710 days for reevaluation. ED Medical Decision Making - Medical Decision Making This is a 28-year-old female who presented to the ED with component of acute onset erythematous maculopapular fluctuant rash on right inguinal area with severe pain for 2 days. In the ED, patient is alert and oriented 3 and is not in distress but appears to be in pain. Patient was treated for pain in the ED and also given oral antibiotics. The right inguinal fluctuant maculopapular rash was cleaned thoroughly and incised and drained per protocol. Patient tolerated the procedure well. Patient was discharged home on medications and antibiotics and advised to follow-up with her primary care physician in 7-10 days for reevaluation. Patient was also advised to return to the ED immediately if symptoms get worse. Patient was otherwise advised to return to the ED in 2 days for wound recheck and packing removal. - Differential Diagnosis acute folliculitis; right inguinal abscess; cellulitis of inguinal area Critical care attestation.: If time is entered above; I have spent that time in minutes in the direct care of this critically ill patient, excluding procedure time. ED Disposition Clinical Impression: Cutaneous abscess of groin, Cellulitis of right groin, Acute folliculitis Disposition: TO HOME OR SELFCARE Is pt being admited?: No Does the pt Need Aspirin: No Condition: Stable Instructions: Folliculitis (ED), Abscess (ED), Cellulitis (ED) Additional Instructions: Take medication with food, drink plenty of fluids and follow-up with your [facility] physician in 7-10 days for reevaluation. Return to the ED immediately if symptoms get worse. Otherwise return to the ED in 2 days for wound recheck and packing removal. Prescriptions: Sulfamethoxazole/Trimethoprim [Bactrim DS TAB] 1 each PO Q12H #20 tablet Clindamycin [Clindamycin CAP] 300 mg PO Q8HR #60 capsule Ibuprofen [Motrin] 800 mg PO Q8HR PRN #24 tablet PRN Reason: Pain , Severe (7-10) Acetaminophen/Codeine [Tylenol /Codeine # 3 tab] 1 tab PO Q6H PRN #12 tab PRN Reason: Pain , Severe (7-10) Ondansetron [Zofran Odt] 4 mg PO Q6HR PRN #15 tab.rapdis PRN Reason: Nausea Referrals: PRIMARY CARE, [Primary Care Provider] - 3-5 Days Time of Disposition: 05:03 Print Language: PORTUGUESE
[2019-05-25 05:52] VITALS: BP 122/78
== END 2019-05-25 05:51 | disposition home or self-care (01) ==
LOC: ED 00:10
DX: L02.214 Cutaneous abscess of groin (principal); L03.314 Cellulitis of groin; L73.9 Follicular disorder, unspecified; F41.9 Anxiety disorder, unspecified; J45.909 Unspecified asthma, uncomplicated
CPT/HCPCS: 10060; 96372; 99283; J1885; Q0162

== ENCOUNTER 2019-05-27 07:49 | Emergency (ER) | payer MEDICAID ==
[2019-05-27 07:54] VITALS: BP 126/82
--- NOTE | 2019-05-27 08:31 | Emergency Department Report ---
- General Chief complaint: Laceration/Recheck/Suture Stated complaint: WOUND REMOVAL PACKAGE Time Seen by Provider: 05/27/19 08:21 Source: patient Mode of arrival: Ambulatory Limitations: No Limitations - History of Present Illness Initial comments: Deonna is a 28-year-old female who was treated for labia right abscess 2 days ago. She was asked to return to the ER. Packing is in place. She's had continuous drainage. No fever. MD complaint: abscess/boil -: Gradual Location: genitals Severity: mild Consistency: constant Improves with: none Worsens with: none Context: none Associated symptoms: denies other symptoms - Related Data Previous Rx's Medication Instructions Recorded Last Taken Type Acetaminophen/Codeine [Tylenol #3] 1 tab PO Q6H PRN #20 tab 06/19/15 Unknown Rx Cyclobenzaprine [Flexeril 10 MG 10 mg PO TID PRN #30 tablet 06/19/15 Unknown Rx TAB] Ketorolac [Toradol] 10 mg PO Q6H PRN #20 tablet 11/25/16 Unknown Rx HYDROcodone/APAP 5-325 [[place] 1 each PO Q6HR PRN #10 tablet 02/28/17 Unknown Rx 5/325] Sulfamethoxazole/Trimethoprim 1 each PO BID #20 tablet 02/27/18 Unknown Rx [Bactrim DS TAB] Ibuprofen [Motrin 600 MG tab] 600 mg PO Q8H PRN #30 tablet 04/24/18 Unknown Rx Metaxalone [Skelaxin] 800 mg PO TID #14 tablet 04/24/18 Unknown Rx traMADol [Ultram 50 MG tab] 50 mg PO Q8HR PRN #20 tablet 04/24/18 Unknown Rx Cetirizine HCl [ZyrTEC] 10 mg PO QAM 14 Days #14 capsule 05/13/18 Unknown Rx Fluticasone [Flonase] 1 spray NS QDAY 14 Days #1 bottle 05/13/18 Unknown Rx Ibuprofen [Motrin] 600 mg PO Q8H PRN #12 tablet 05/13/18 Unknown Rx Albuterol Sulfate [Proventil Hfa] 2 puff IH Q4HR PRN #1 hfa.aer.ad 01/31/19 Unknown Rx ALBUTEROL Inhaler (OR & NICU) 2 puff IH Q4HR PRN #1 inhalation 04/05/19 Unknown Rx [ProAir HFA Inhaler] Acetaminophen/Codeine [Tylenol 1 tab PO Q6H PRN #12 tab 05/25/19 Unknown Rx /Codeine # 3 tab] Clindamycin [Clindamycin CAP] 300 mg PO Q8HR #60 capsule 05/25/19 Unknown Rx Ibuprofen [Motrin] 800 mg PO Q8HR PRN #24 tablet 05/25/19 Unknown Rx Ondansetron [Zofran Odt] 4 mg PO Q6HR PRN #15 tab.rapdis 05/25/19 Unknown Rx Sulfamethoxazole/Trimethoprim 1 each PO Q12H #20 tablet 05/25/19 Unknown Rx [Bactrim DS TAB] Allergies Allergy/AdvReac Type Severity Reaction Status Date / Time No Known Allergies Allergy Verified 04/05/19 12:25 Abscess Boil HPI - HPI Chief Complaint: Laceration/Recheck/Suture Stated Complaint: WOUND REMOVAL PACKAGE Time Seen by Provider: 05/27/19 08:21 Home Medications: Previous Rx's Medication Instructions Recorded Last Taken Type Acetaminophen/Codeine [Tylenol #3] 1 tab PO Q6H PRN #20 tab 06/19/15 Unknown Rx Cyclobenzaprine [Flexeril 10 MG 10 mg PO TID PRN #30 tablet 06/19/15 Unknown Rx TAB] Ketorolac [Toradol] 10 mg PO Q6H PRN #20 tablet 11/25/16 Unknown Rx HYDROcodone/APAP 5-325 [[place] 1 each PO Q6HR PRN #10 tablet 02/28/17 Unknown Rx 5/325] Sulfamethoxazole/Trimethoprim 1 each PO BID #20 tablet 02/27/18 Unknown Rx [Bactrim DS TAB] Ibuprofen [Motrin 600 MG tab] 600 mg PO Q8H PRN #30 tablet 04/24/18 Unknown Rx Metaxalone [Skelaxin] 800 mg PO TID #14 tablet 04/24/18 Unknown Rx traMADol [Ultram 50 MG tab] 50 mg PO Q8HR PRN #20 tablet 04/24/18 Unknown Rx Cetirizine HCl [ZyrTEC] 10 mg PO QAM 14 Days #14 capsule 05/13/18 Unknown Rx Fluticasone [Flonase] 1 spray NS QDAY 14 Days #1 bottle 05/13/18 Unknown Rx Ibuprofen [Motrin] 600 mg PO Q8H PRN #12 tablet 05/13/18 Unknown Rx Albuterol Sulfate [Proventil Hfa] 2 puff IH Q4HR PRN #1 hfa.aer.ad 01/31/19 Unknown Rx ALBUTEROL Inhaler (OR & NICU) 2 puff IH Q4HR PRN #1 inhalation 04/05/19 Unknown Rx [ProAir HFA Inhaler] Acetaminophen/Codeine [Tylenol 1 tab PO Q6H PRN #12 tab 05/25/19 Unknown Rx /Codeine # 3 tab] Clindamycin [Clindamycin CAP] 300 mg PO Q8HR #60 capsule 05/25/19 Unknown Rx Ibuprofen [Motrin] 800 mg PO Q8HR PRN #24 tablet 05/25/19 Unknown Rx Ondansetron [Zofran Odt] 4 mg PO Q6HR PRN #15 tab.rapdis 05/25/19 Unknown Rx Sulfamethoxazole/Trimethoprim 1 each PO Q12H #20 tablet 05/25/19 Unknown Rx [Bactrim DS TAB] Allergies/Adverse Reactions: Allergies Allergy/AdvReac Type Severity Reaction Status Date / Time No Known Allergies Allergy Verified 04/05/19 12:25 ED Review of Systems ROS: Stated complaint: WOUND REMOVAL PACKAGE Other details as noted in HPI Constitutional: denies: fever, malaise Skin: rash, lesions Neurological: denies: numbness, paresthesias ED Past Medical Hx - Past Medical History Hx Hypertension: No Hx Diabetes: No Hx Deep Vein Thrombosis: No Hx Renal Disease: No Hx Sickle Cell Disease: No Hx Seizures: No Hx Psychiatric Treatment: Yes (anxiety) Hx Asthma: Yes (On inhalersa PRN) Hx HIV: No Additional medical history: BRONCHITIS. ANEMIA - Surgical History Additional Surgical History: anxiety - Social History Smoking Status: Current Every Day Smoker - Medications Home Medications: Home Medications Medication Instructions Recorded Confirmed Last Taken Type Acetaminophen/Codeine [Tylenol #3] 1 tab PO Q6H PRN #20 tab 06/19/15 Unknown Rx Cyclobenzaprine [Flexeril 10 MG 10 mg PO TID PRN #30 tablet 06/19/15 Unknown Rx TAB] Ketorolac [Toradol] 10 mg PO Q6H PRN #20 tablet 11/25/16 Unknown Rx HYDROcodone/APAP 5-325 [[place] 1 each PO Q6HR PRN #10 tablet 02/28/17 Unknown Rx 5/325] Sulfamethoxazole/Trimethoprim 1 each PO BID #20 tablet 02/27/18 Unknown Rx [Bactrim DS TAB] Ibuprofen [Motrin 600 MG tab] 600 mg PO Q8H PRN #30 tablet 04/24/18 Unknown Rx Metaxalone [Skelaxin] 800 mg PO TID #14 tablet 04/24/18 Unknown Rx traMADol [Ultram 50 MG tab] 50 mg PO Q8HR PRN #20 tablet 04/24/18 Unknown Rx Cetirizine HCl [ZyrTEC] 10 mg PO QAM 14 Days #14 capsule 05/13/18 Unknown Rx Fluticasone [Flonase] 1 spray NS QDAY 14 Days #1 bottle 05/13/18 Unknown Rx Ibuprofen [Motrin] 600 mg PO Q8H PRN #12 tablet 05/13/18 Unknown Rx Albuterol Sulfate [Proventil Hfa] 2 puff IH Q4HR PRN #1 hfa.aer.ad 01/31/19 Unknown Rx ALBUTEROL Inhaler (OR & NICU) 2 puff IH Q4HR PRN #1 inhalation 04/05/19 Unknown Rx [ProAir HFA Inhaler] Acetaminophen/Codeine [Tylenol 1 tab PO Q6H PRN #12 tab 05/25/19 Unknown Rx /Codeine # 3 tab] Clindamycin [Clindamycin CAP] 300 mg PO Q8HR #60 capsule 05/25/19 Unknown Rx Ibuprofen [Motrin] 800 mg PO Q8HR PRN #24 tablet 05/25/19 Unknown Rx Ondansetron [Zofran Odt] 4 mg PO Q6HR PRN #15 tab.rapdis 05/25/19 Unknown Rx Sulfamethoxazole/Trimethoprim 1 each PO Q12H #20 tablet 05/25/19 Unknown Rx [Bactrim DS TAB] ED Physical Exam - General Limitations: No Limitations General appearance: alert, in no apparent distress - Neck Neck exam: Present: full ROM - Respiratory Respiratory exam: Absent: respiratory distress - Skin Skin exam: Present: warm, dry, normal color, other (right labia: Packing in place copious amount of purulent drainage no erythema healing abscess) ED Course Vital Signs 05/27/19 07:51 Temperature 97.9 F Pulse Rate 87 Respiratory 18 Rate Blood Pressure 126/82 [Right] O2 Sat by Pulse 100 Oximetry ED Medical Decision Making - Medical Decision Making Right labial abscess I have iodoform packing to stay in place. She will return in 2 days for packing removal. Critical care attestation.: If time is entered above; I have spent that time in minutes in the direct care of this critically ill patient, excluding procedure time. ED Disposition Clinical Impression: Cutaneous abscess of groin, Wound check, abscess Disposition: [id number] TO HOME OR SELFCARE Is pt being admited?: No Does the pt Need Aspirin: No Condition: Stable Additional Instructions: Please return in 3 days for packing removal.
== END 2019-05-27 08:53 | disposition home or self-care (01) ==
LOC: ED 07:49
DX: N76.0 Acute vaginitis (principal)
CPT/HCPCS: 99281

== ENCOUNTER 2019-05-31 01:10 | Emergency (ER) | payer MEDICAID ==
[2019-05-31 01:17] VITALS: BP 123/77
--- NOTE | 2019-05-31 02:38 | Emergency Department Report ---
ED Recheck HPI - General Chief Complaint: Skin/Abscess/Foreign Body Stated Complaint: WOUND CHECK Time Seen by Provider: 05/31/19 01:56 Source: patient Mode of arrival: Ambulatory Limitations: No Limitations - History of Present Illness Initial Comments: 28-year-old female presents to ED for wound check. Patient had I&D of abscess in right inguinal area 6 days ago. Patient states the area is not as painful as it was previously. Complaint: wound re-check -: days(s) (6) Initial Visit For: abscess Returns Today for: wound recheck Symptoms Since Prior Visit: no new symptoms, improved Context: planned re-check Associated Symptoms: denies: fever, chills - Related Data Previous Rx's Medication Instructions Recorded Last Taken Type Acetaminophen/Codeine [Tylenol #3] 1 tab PO Q6H PRN #20 tab 06/19/15 Unknown Rx Cyclobenzaprine [Flexeril 10 MG 10 mg PO TID PRN #30 tablet 06/19/15 Unknown Rx TAB] Ketorolac [Toradol] 10 mg PO Q6H PRN #20 tablet 11/25/16 Unknown Rx HYDROcodone/APAP 5-325 [[place] 1 each PO Q6HR PRN #10 tablet 02/28/17 Unknown Rx 5/325] Sulfamethoxazole/Trimethoprim 1 each PO BID #20 tablet 02/27/18 Unknown Rx [Bactrim DS TAB] Ibuprofen [Motrin 600 MG tab] 600 mg PO Q8H PRN #30 tablet 04/24/18 Unknown Rx Metaxalone [Skelaxin] 800 mg PO TID #14 tablet 04/24/18 Unknown Rx traMADol [Ultram 50 MG tab] 50 mg PO Q8HR PRN #20 tablet 04/24/18 Unknown Rx Cetirizine HCl [ZyrTEC] 10 mg PO QAM 14 Days #14 capsule 05/13/18 Unknown Rx Fluticasone [Flonase] 1 spray NS QDAY 14 Days #1 bottle 05/13/18 Unknown Rx Ibuprofen [Motrin] 600 mg PO Q8H PRN #12 tablet 05/13/18 Unknown Rx Albuterol Sulfate [Proventil Hfa] 2 puff IH Q4HR PRN #1 hfa.aer.ad 01/31/19 Unknown Rx ALBUTEROL Inhaler (OR & NICU) 2 puff IH Q4HR PRN #1 inhalation 04/05/19 Unknown Rx [ProAir HFA Inhaler] Acetaminophen/Codeine [Tylenol 1 tab PO Q6H PRN #12 tab 05/25/19 Unknown Rx /Codeine # 3 tab] Clindamycin [Clindamycin CAP] 300 mg PO Q8HR #60 capsule 05/25/19 Unknown Rx Ibuprofen [Motrin] 800 mg PO Q8HR PRN #24 tablet 05/25/19 Unknown Rx Ondansetron [Zofran Odt] 4 mg PO Q6HR PRN #15 tab.rapdis 05/25/19 Unknown Rx Sulfamethoxazole/Trimethoprim 1 each PO Q12H #20 tablet 05/25/19 Unknown Rx [Bactrim DS TAB] Allergies Allergy/AdvReac Type Severity Reaction Status Date / Time No Known Allergies Allergy Verified 04/05/19 12:25 ED Review of Systems ROS: Stated complaint: WOUND CHECK Other details as noted in HPI Comment: All other systems reviewed and negative Constitutional: denies: chills, fever Skin: as per HPI ED Past Medical Hx - Past Medical History Previous Medical History?: Yes Hx Hypertension: No Hx Diabetes: No Hx Deep Vein Thrombosis: No Hx Renal Disease: No Hx Sickle Cell Disease: No Hx Seizures: No Hx Psychiatric Treatment: Yes (anxiety) Hx Asthma: Yes (On inhalersa PRN) Hx HIV: No Additional medical history: BRONCHITIS. ANEMIA - Surgical History Past Surgical History?: Yes Additional Surgical History: csection - Social History Smoking Status: Never Smoker Substance Use Type: None - Medications Home Medications: Home Medications Medication Instructions Recorded Confirmed Last Taken Type Acetaminophen/Codeine [Tylenol #3] 1 tab PO Q6H PRN #20 tab 06/19/15 Unknown Rx Cyclobenzaprine [Flexeril 10 MG 10 mg PO TID PRN #30 tablet 06/19/15 Unknown Rx TAB] Ketorolac [Toradol] 10 mg PO Q6H PRN #20 tablet 11/25/16 Unknown Rx HYDROcodone/APAP 5-325 [[place] 1 each PO Q6HR PRN #10 tablet 02/28/17 Unknown Rx 5/325] Sulfamethoxazole/Trimethoprim 1 each PO BID #20 tablet 02/27/18 Unknown Rx [Bactrim DS TAB] Ibuprofen [Motrin 600 MG tab] 600 mg PO Q8H PRN #30 tablet 04/24/18 Unknown Rx Metaxalone [Skelaxin] 800 mg PO TID #14 tablet 04/24/18 Unknown Rx traMADol [Ultram 50 MG tab] 50 mg PO Q8HR PRN #20 tablet 04/24/18 Unknown Rx Cetirizine HCl [ZyrTEC] 10 mg PO QAM 14 Days #14 capsule 05/13/18 Unknown Rx Fluticasone [Flonase] 1 spray NS QDAY 14 Days #1 bottle 05/13/18 Unknown Rx Ibuprofen [Motrin] 600 mg PO Q8H PRN #12 tablet 05/13/18 Unknown Rx Albuterol Sulfate [Proventil Hfa] 2 puff IH Q4HR PRN #1 hfa.aer.ad 01/31/19 Unknown Rx ALBUTEROL Inhaler (OR & NICU) 2 puff IH Q4HR PRN #1 inhalation 04/05/19 Unknown Rx [ProAir HFA Inhaler] Acetaminophen/Codeine [Tylenol 1 tab PO Q6H PRN #12 tab 05/25/19 Unknown Rx /Codeine # 3 tab] Clindamycin [Clindamycin CAP] 300 mg PO Q8HR #60 capsule 05/25/19 Unknown Rx Ibuprofen [Motrin] 800 mg PO Q8HR PRN #24 tablet 05/25/19 Unknown Rx Ondansetron [Zofran Odt] 4 mg PO Q6HR PRN #15 tab.rapdis 05/25/19 Unknown Rx Sulfamethoxazole/Trimethoprim 1 each PO Q12H #20 tablet 05/25/19 Unknown Rx [Bactrim DS TAB] ED Physical Exam - General Limitations: No Limitations General appearance: alert, in no apparent distress - Head Head exam: Present: atraumatic, normocephalic - Eye Eye exam: Present: normal appearance - ENT ENT exam: Present: mucous membranes moist - Neck Neck exam: Present: normal inspection - Respiratory Respiratory exam: Present: normal lung sounds bilaterally. Absent: respiratory distress - Cardiovascular Cardiovascular Exam: Present: regular rate, normal rhythm - GI/Abdominal GI/Abdominal exam: Absent: distended - Extremities Exam Extremities exam: Present: normal inspection - Neurological Exam Neurological exam: Present: alert, oriented X3 - Psychiatric Psychiatric exam: Present: normal affect, normal mood - Skin Skin exam: Present: other (packing removed from inguinal abscess, no erythema present) ED Course Vital Signs 05/31/19 01:14 Temperature 97.6 F Pulse Rate 69 Respiratory 18 Rate Blood Pressure 123/77 O2 Sat by Pulse 100 Oximetry ED Recheck MDM - Differential Diagnosis Wound Recheck - Medical Decision Making Packing removed. Critical care attestation.: If time is entered above; I have spent that time in minutes in the direct care of this critically ill patient, excluding procedure time. ED Disposition Clinical Impression: Wound check, abscess Disposition: DC-01 TO HOME OR SELFCARE Is pt being admited?: No Condition: Stable Instructions: Abscess Incision and Drainage (ED) Referrals: PRIMARY CARE [Primary Care Provider] - 3-5 Days [facility] [Provider Group] - 3-5 Days Time of Disposition: 02:38
== END 2019-05-31 02:44 | disposition home or self-care (01) ==
LOC: ED 01:10
DX: L02.214 Cutaneous abscess of groin (principal); F41.9 Anxiety disorder, unspecified; J45.909 Unspecified asthma, uncomplicated; D64.9 Anemia, unspecified; Z79.899 Other long term (current) drug therapy

== ENCOUNTER 2019-06-11 02:39 | Emergency (ER) | payer MEDICAID ==
[2019-06-11 02:56] VITALS: BP 107/62
[2019-06-11] MEDS ORDERED: LIDOCAINE (1%) 10 MG/1 ML VIAL 20 ML MDV INFILTRATI ONE (04:10)
--- NOTE | 2019-06-11 05:31 | Emergency Department Report ---
- General Chief complaint: Skin/Abscess/Foreign Body Stated complaint: BOIL Time Seen by Provider: 06/11/19 03:49 Source: patient Mode of arrival: Ambulatory Limitations: No Limitations - History of Present Illness Initial comments: Pt is a a 28 y/o aam with hx fo groin abscess who presents with left groin abscess x 4 days. pt denies fever or chills no n/v. pt was rx clindamycin and bactrim for right side groin abscess on 2018 but failed to complete medication regimen. pt advises thats she stop taking medication once wick was removed 2 days after I&D. left groin abscess 1x1 cm, mild erythema pain to touch. There are no relieving facture , pain is reproduces by palpation. Onset/Timin -: days(s) Tetanus Up to Date: yes Location: genitals Severity: moderate Severity scale (0 -10): 4 Quality: other (soreness ) Consistency: constant Improves with: none Worsens with: palpation, movement Context: other (recurrent abscess groin) Associated symptoms: denies other symptoms Treatments Prior to Arrival: none - Related Data Previous Rx's Medication Instructions Recorded Last Taken Type Acetaminophen/Codeine [Tylenol #3] 1 tab PO Q6H PRN #20 tab 06/19/15 Unknown Rx Cyclobenzaprine [Flexeril 10 MG 10 mg PO TID PRN #30 tablet 06/19/15 Unknown Rx TAB] Ketorolac [Toradol] 10 mg PO Q6H PRN #20 tablet 11/25/16 Unknown Rx HYDROcodone/APAP 5-325 [[place] 1 each PO Q6HR PRN #10 tablet 02/28/17 Unknown Rx 5/325] Sulfamethoxazole/Trimethoprim 1 each PO BID #20 tablet 02/27/18 Unknown Rx [Bactrim DS TAB] Ibuprofen [Motrin 600 MG tab] 600 mg PO Q8H PRN #30 tablet 04/24/18 Unknown Rx Metaxalone [Skelaxin] 800 mg PO TID #14 tablet 04/24/18 Unknown Rx traMADol [Ultram 50 MG tab] 50 mg PO Q8HR PRN #20 tablet 04/24/18 Unknown Rx Cetirizine HCl [ZyrTEC] 10 mg PO QAM 14 Days #14 capsule 05/13/18 Unknown Rx Fluticasone [Flonase] 1 spray NS QDAY 14 Days #1 bottle 05/13/18 Unknown Rx Ibuprofen [Motrin] 600 mg PO Q8H PRN #12 tablet 05/13/18 Unknown Rx Albuterol Sulfate [Proventil Hfa] 2 puff IH Q4HR PRN #1 hfa.aer.ad 01/31/19 Unknown Rx ALBUTEROL Inhaler (OR & NICU) 2 puff IH Q4HR PRN #1 inhalation 04/05/19 Unknown Rx [ProAir HFA Inhaler] Acetaminophen/Codeine [Tylenol 1 tab PO Q6H PRN #12 tab 05/25/19 Unknown Rx /Codeine # 3 tab] Clindamycin [Clindamycin CAP] 300 mg PO Q8HR #60 capsule 05/25/19 Unknown Rx Ibuprofen [Motrin] 800 mg PO Q8HR PRN #24 tablet 05/25/19 Unknown Rx Ondansetron [Zofran Odt] 4 mg PO Q6HR PRN #15 tab.rapdis 05/25/19 Unknown Rx Sulfamethoxazole/Trimethoprim 1 each PO Q12H #20 tablet 05/25/19 Unknown Rx [Bactrim DS TAB] Acetaminophen/Codeine [Tylenol 1 tab PO Q6H PRN #12 tab 06/11/19 Unknown Rx /Codeine # 3 tab] Allergies Allergy/AdvReac Type Severity Reaction Status Date / Time No Known Allergies Allergy Verified 04/05/19 12:25 Abscess Boil HPI - HPI Chief Complaint: Skin/Abscess/Foreign Body Stated Complaint: BOIL Time Seen by Provider: 06/11/19 03:49 Home Medications: Previous Rx's Medication Instructions Recorded Last Taken Type Acetaminophen/Codeine [Tylenol #3] 1 tab PO Q6H PRN #20 tab 06/19/15 Unknown Rx Cyclobenzaprine [Flexeril 10 MG 10 mg PO TID PRN #30 tablet 06/19/15 Unknown Rx TAB] Ketorolac [Toradol] 10 mg PO Q6H PRN #20 tablet 11/25/16 Unknown Rx HYDROcodone/APAP 5-325 [[place] 1 each PO Q6HR PRN #10 tablet 02/28/17 Unknown Rx 5/325] Sulfamethoxazole/Trimethoprim 1 each PO BID #20 tablet 02/27/18 Unknown Rx [Bactrim DS TAB] Ibuprofen [Motrin 600 MG tab] 600 mg PO Q8H PRN #30 tablet 04/24/18 Unknown Rx Metaxalone [Skelaxin] 800 mg PO TID #14 tablet 04/24/18 Unknown Rx traMADol [Ultram 50 MG tab] 50 mg PO Q8HR PRN #20 tablet 04/24/18 Unknown Rx Cetirizine HCl [ZyrTEC] 10 mg PO QAM 14 Days #14 capsule 05/13/18 Unknown Rx Fluticasone [Flonase] 1 spray NS QDAY 14 Days #1 bottle 05/13/18 Unknown Rx Ibuprofen [Motrin] 600 mg PO Q8H PRN #12 tablet 05/13/18 Unknown Rx Albuterol Sulfate [Proventil Hfa] 2 puff IH Q4HR PRN #1 hfa.aer.ad 01/31/19 Unknown Rx ALBUTEROL Inhaler (OR & NICU) 2 puff IH Q4HR PRN #1 inhalation 04/05/19 Unknown Rx [ProAir HFA Inhaler] Acetaminophen/Codeine [Tylenol 1 tab PO Q6H PRN #12 tab 05/25/19 Unknown Rx /Codeine # 3 tab] Clindamycin [Clindamycin CAP] 300 mg PO Q8HR #60 capsule 05/25/19 Unknown Rx Ibuprofen [Motrin] 800 mg PO Q8HR PRN #24 tablet 05/25/19 Unknown Rx Ondansetron [Zofran Odt] 4 mg PO Q6HR PRN #15 tab.rapdis 05/25/19 Unknown Rx Sulfamethoxazole/Trimethoprim 1 each PO Q12H #20 tablet 05/25/19 Unknown Rx [Bactrim DS TAB] Acetaminophen/Codeine [Tylenol 1 tab PO Q6H PRN #12 tab 06/11/19 Unknown Rx /Codeine # 3 tab] Allergies/Adverse Reactions: Allergies Allergy/AdvReac Type Severity Reaction Status Date / Time No Known Allergies Allergy Verified 04/05/19 12:25 ED Review of Systems ROS: Stated complaint: BOIL Other details as noted in HPI Constitutional: denies: chills, fever Eyes: denies: eye pain, eye discharge, vision change ENT: denies: ear pain, throat pain Respiratory: denies: cough, shortness of breath, wheezing Cardiovascular: denies: chest pain, palpitations Endocrine: no symptoms reported Gastrointestinal: denies: abdominal pain, nausea, diarrhea Genitourinary: other (right groin abscess 1x1 cm ). denies: urgency, dysuria, discharge Musculoskeletal: denies: back pain, joint swelling, arthralgia Skin: denies: rash, lesions Neurological: denies: headache, weakness, paresthesias Psychiatric: denies: anxiety, depression Hematological/Lymphatic: denies: easy bleeding, easy bruising ED Past Medical Hx - Past Medical History Previous Medical History?: Yes Hx Hypertension: No Hx Diabetes: No Hx Deep Vein Thrombosis: No Hx Renal Disease: No Hx Sickle Cell Disease: No Hx Seizures: No Hx Psychiatric Treatment: Yes (anxiety) Hx Asthma: Yes (On inhalersa PRN) Hx HIV: No Additional medical history: BRONCHITIS. ANEMIA - Surgical History Past Surgical History?: Yes Additional Surgical History: csection - Social History Smoking Status: Current Every Day Smoker Substance Use Type: None - Medications Home Medications: Home Medications Medication Instructions Recorded Confirmed Last Taken Type Acetaminophen/Codeine [Tylenol #3] 1 tab PO Q6H PRN #20 tab 06/19/15 Unknown Rx Cyclobenzaprine [Flexeril 10 MG 10 mg PO TID PRN #30 tablet 06/19/15 Unknown Rx TAB] Ketorolac [Toradol] 10 mg PO Q6H PRN #20 tablet 11/25/16 Unknown Rx HYDROcodone/APAP 5-325 [[place] 1 each PO Q6HR PRN #10 tablet 02/28/17 Unknown Rx 5/325] Sulfamethoxazole/Trimethoprim 1 each PO BID #20 tablet 02/27/18 Unknown Rx [Bactrim DS TAB] Ibuprofen [Motrin 600 MG tab] 600 mg PO Q8H PRN #30 tablet 04/24/18 Unknown Rx Metaxalone [Skelaxin] 800 mg PO TID #14 tablet 04/24/18 Unknown Rx traMADol [Ultram 50 MG tab] 50 mg PO Q8HR PRN #20 tablet 04/24/18 Unknown Rx Cetirizine HCl [ZyrTEC] 10 mg PO QAM 14 Days #14 capsule 05/13/18 Unknown Rx Fluticasone [Flonase] 1 spray NS QDAY 14 Days #1 bottle 05/13/18 Unknown Rx Ibuprofen [Motrin] 600 mg PO Q8H PRN #12 tablet 05/13/18 Unknown Rx Albuterol Sulfate [Proventil Hfa] 2 puff IH Q4HR PRN #1 hfa.aer.ad 01/31/19 Unknown Rx ALBUTEROL Inhaler (OR & NICU) 2 puff IH Q4HR PRN #1 inhalation 04/05/19 Unknown Rx [ProAir HFA Inhaler] Acetaminophen/Codeine [Tylenol 1 tab PO Q6H PRN #12 tab 05/25/19 Unknown Rx /Codeine # 3 tab] Clindamycin [Clindamycin CAP] 300 mg PO Q8HR #60 capsule 05/25/19 Unknown Rx Ibuprofen [Motrin] 800 mg PO Q8HR PRN #24 tablet 05/25/19 Unknown Rx Ondansetron [Zofran Odt] 4 mg PO Q6HR PRN #15 tab.rapdis 05/25/19 Unknown Rx Sulfamethoxazole/Trimethoprim 1 each PO Q12H #20 tablet 05/25/19 Unknown Rx [Bactrim DS TAB] Acetaminophen/Codeine [Tylenol 1 tab PO Q6H PRN #12 tab 06/11/19 Unknown Rx /Codeine # 3 tab] ED Physical Exam - General Limitations: No Limitations General appearance: alert, in no apparent distress - Head Head exam: Present: atraumatic, normocephalic - Eye Eye exam: Present: normal appearance, PERRL, EOMI Pupils: Present: normal accommodation - ENT ENT exam: Present: mucous membranes moist - Neck Neck exam: Present: normal inspection - Respiratory Respiratory exam: Present: normal lung sounds bilaterally. Absent: respiratory distress, wheezes, stridor, chest wall tenderness - Cardiovascular Cardiovascular Exam: Present: regular rate, normal rhythm, normal heart sounds. Absent: systolic murmur, diastolic murmur, rubs, gallop - GI/Abdominal GI/Abdominal exam: Present: soft, normal bowel sounds. Absent: distended, tenderness, bruit, hernia - Rectal Rectal exam: Present: deferred - External exam: Present: other (abscess to mons left later wall 1x1 xcm fluctuant mild erythema pain to touch ) - Extremities Exam Extremities exam: Present: normal inspection, full ROM. Absent: tenderness, normal capillary refill - Back Exam Back exam: Present: normal inspection, full ROM. Absent: tenderness, rash noted - Neurological Exam Neurological exam: Present: alert, oriented X3 - Psychiatric Psychiatric exam: Present: normal affect, normal mood - Skin Skin exam: Present: warm, dry, intact, normal color. Absent: rash ED Course Vital Signs 06/11/19 02:55 Temperature 98.1 F Pulse Rate 107 H Respiratory 20 Rate Blood Pressure 107/62 O2 Sat by Pulse 97 Oximetry - I & D Left Distal Type of Procedure: Simple Site: left groin Blade Size: 11 I & D Procedure: betadine prep, sterile drapes applied, sterile dressing applied Progress: site cleaned with betadine solution, anesthia with 1% lidcaine 3 cc, incision with 11 blade scaple, moderate purulent drainage, loculations broken up with blunt 6 inch forcepts, wound irrigated wtih 30 cc sterile saline , all bleeding is controlled, sterile dressing applied, pt declined idoform wick, pt will follow up with pcp in 2 days for wound check . pt tolerated procedure with minimal distress. ED Medical Decision Making - Medical Decision Making abscess for I&d,, see procedure note, pt tolerated procedure with minimal distress, pt for dc to home in stable condition at this time , will dc to home with rx for tylenol 3, pt will continue clindamycin and bactrim as prescribed and follow up with pcp in 2 for wound check , pt verbalized agreement and understanding of discharge plan. Critical care attestation.: If time is entered above; I have spent that time in minutes in the direct care of this critically ill patient, excluding procedure time. ED Disposition Clinical Impression: Abscess of groin, left Disposition: DC-01 TO HOME OR SELFCARE Is pt being admited?: No Does the pt Need Aspirin: No Condition: Stable Instructions: Abscess (ED) Additional Instructions: please complete antibiotics as previously prescribed, wound care as directed, follow up your primary care doctor in 2 days for wound check , not symptoms of infection as directed Prescriptions: Acetaminophen/Codeine [Tylenol /Codeine # 3 tab] 1 tab PO Q6H PRN #12 tab PRN Reason: Pain , Severe (7-10) Referrals: DAKOTA FENG MD [Primary Care Provider] - 3-5 Days Forms: Work/School Release Form(ED) Time of Disposition: 05:44
[2019-06-11] MEDS ORDERED: LIDOCAINE (1%) 10 MG/1 ML VIAL 20 ML MDV ONE (06:15)
== END 2019-06-11 05:55 | disposition home or self-care (01) ==
LOC: ED 02:39
DX: L02.214 Cutaneous abscess of groin (principal); J45.909 Unspecified asthma, uncomplicated; F17.200 Nicotine dependence, unspecified, uncomplicated; Z79.899 Other long term (current) drug therapy

== ENCOUNTER 2019-08-10 05:56 | Observation (INO) | payer SELFPAY ==
[2019-08-10] MEDS ORDERED: ALBUTEROL 2.5 MG/3 ML NEBU IH ONE ×2 (06:21→06:27)
[2019-08-10] MEDS ORDERED: IPRATROPIUM 0.02% NEBU 2.5 ML IH ONE ×2 (06:21→06:27)
[2019-08-10] MEDS ORDERED: predniSONE 20 MG TAB PO ONE (08:11)
[2019-08-10] MEDS ORDERED: SODIUM CHLORIDE 0.9% 1000 ML 1,000 ML IV ONE ×2 (08:15→11:27)
[2019-08-10] MEDS ORDERED: ACETAMINOPHEN 500 MG TAB PO ONE (08:15)
[2019-08-10] MEDS ORDERED: LEVALBUTEROL 0.63 MG/3 ML NEBU IH ONE ×2 (08:17→12:22)
--- NOTE | 2019-08-10 08:18 | Emergency Department Report ---
HPI - General Chief Complaint: Adult Asthma Time Seen by Provider: 08/10/19 08:06 - HPI HPI: Room 35 The patient is a 29-year-old female presenting with a chief complaint of cough and shortness of breath. The patient states for one week she's had a dry cough and shortness of breath. Patient admits to subjective fever and feeling chills and body aches. Patient admits to rhinorrhea. The patient states there are children at home are sick with the same symptoms and symptoms began approximately 1 week prior to the patient's. Location: [See above] Duration: [See above] Quality: [See above] Severity: [See above] Timing: [See above] Context: [See above] Modifying factors: [See above] Associated signs and symptoms: [see above] ED Past Medical Hx - Past Medical History Hx Psychiatric Treatment: Yes (anxiety) Hx Asthma: Yes (On inhalers PRN) Additional medical history: BRONCHITIS. ANEMIA - Surgical History Additional Surgical History: csection - Family History Family history: no significant - Social History Smoking Status: Current Some Day Smoker (occasional) Substance Use Type: Alcohol (occasional), Marijuana - Medications Home Medications: Home Medications Medication Instructions Recorded Confirmed Last Taken Type Acetaminophen/Codeine [Tylenol #3] 1 tab PO Q6H PRN #20 tab 06/19/15 Unknown Rx Cyclobenzaprine [Flexeril 10 MG 10 mg PO TID PRN #30 tablet 06/19/15 Unknown Rx TAB] Ketorolac [Toradol] 10 mg PO Q6H PRN #20 tablet 11/25/16 Unknown Rx HYDROcodone/APAP 5-325 [[place] 1 each PO Q6HR PRN #10 tablet 02/28/17 Unknown Rx 5/325] Sulfamethoxazole/Trimethoprim 1 each PO BID #20 tablet 02/27/18 Unknown Rx [Bactrim DS TAB] Ibuprofen [Motrin 600 MG tab] 600 mg PO Q8H PRN #30 tablet 04/24/18 Unknown Rx Metaxalone [Skelaxin] 800 mg PO TID #14 tablet 04/24/18 Unknown Rx traMADoL [Ultram 50 MG tab] 50 mg PO Q8HR PRN #20 tablet 04/24/18 Unknown Rx Cetirizine HCl [ZyrTEC] 10 mg PO QAM 14 Days #14 capsule 05/13/18 Unknown Rx Fluticasone [Flonase] 1 spray NS QDAY 14 Days #1 bottle 05/13/18 Unknown Rx Ibuprofen [Motrin] 600 mg PO Q8H PRN #12 tablet 05/13/18 Unknown Rx Albuterol Sulfate [Proventil Hfa] 2 puff IH Q4HR PRN #1 hfa.aer.ad 01/31/19 Unknown Rx ALBUTEROL Inhaler (OR & NICU) 2 puff IH Q4HR PRN #1 inhalation 04/05/19 Unknown Rx [ProAir HFA Inhaler] Acetaminophen/Codeine [Tylenol 1 tab PO Q6H PRN #12 tab 05/25/19 Unknown Rx /Codeine # 3 tab] Clindamycin [Clindamycin CAP] 300 mg PO Q8HR #60 capsule 05/25/19 Unknown Rx Ibuprofen [Motrin] 800 mg PO Q8HR PRN #24 tablet 05/25/19 Unknown Rx Ondansetron [Zofran Odt] 4 mg PO Q6HR PRN #15 tab.rapdis 05/25/19 Unknown Rx Sulfamethoxazole/Trimethoprim 1 each PO Q12H #20 tablet 05/25/19 Unknown Rx [Bactrim DS TAB] Acetaminophen/Codeine [Tylenol 1 tab PO Q6H PRN #12 tab 06/11/19 Unknown Rx /Codeine # 3 tab] ED Review of Systems ROS: Stated complaint: CT Other details as noted in HPI Constitutional: chills, fever Eyes: denies: eye pain ENT: denies: throat pain Respiratory: cough, shortness of breath Cardiovascular: denies: chest pain Endocrine: no symptoms reported Gastrointestinal: denies: abdominal pain Genitourinary: denies: dysuria Musculoskeletal: myalgia Neurological: denies: headache Physical Exam - Physical Exam Vital Signs: Vital Signs 08/10/19 08/10/19 06:13 06:28 Temperature 98.6 F Pulse Rate [ 125 H Bilateral Throughout] Respiratory 20 Rate [Bilateral Throughout] Physical Exam: GENERAL: The patient is well-developed well-nourished female lying on stretcher appearing to be in moderate discomfort. [] HEENT: Normocephalic. Atraumatic. Extraocular motions are intact. Patient has moist mucous membranes. NECK: Supple. Trachea midline CHEST/LUNGS: Occasional faint expiratory wheezing. There is no respiratory distress noted. HEART/CARDIOVASCULAR: Regular. There is tachycardia. There is no gallop rub or murmur. ABDOMEN: Abdomen is soft, nontender. Patient has normal bowel sounds. There is no abdominal distention. SKIN: There is no rash. There is no edema. There is no diaphoresis. NEURO: The patient is awake, alert, and oriented. The patient is cooperative. The patient has normal speech MUSCULOSKELETAL: There is no evidence of acute injury. ED Course Vital Signs 08/10/19 08/10/19 06:13 06:28 Temperature 98.6 F Pulse Rate [ 125 H Bilateral Throughout] Respiratory 20 Rate [Bilateral Throughout] ED Medical Decision Making - Lab Data Result diagrams: 08/10/19 08:20 08/10/19 08:20 Laboratory Tests 08/10/19 08/10/19 08/10/19 08:20 08:20 08:20 WBC 8.9 RBC 4.88 Hgb 13.2 Hct 40.2 MCV 82 MCH 27 L MCHC 33 RDW 14.5 Plt Count 306 Lymph % (Auto) 10.0 L Chaves % (Auto) 14.0 H Eos % (Auto) 0.2 Baso % (Auto) 0.3 Lymph # 0.9 L Chaves # 1.2 H Eos # 0.0 Baso # 0.0 Seg Neutrophils % 75.5 H Seg Neutrophils # 6.7 Sodium 142 Potassium 3.5 L Chloride 105.8 Carbon Dioxide 18 L Anion Gap 22 BUN 8 Creatinine 0.7 Estimated GFR > 60 BUN/Creatinine Ratio 11 Glucose 117 H Lactic Acid 2.30 H* Calcium 8.7 HCG, Qual Influenza A (Rapid) Influenza B (Rapid) 08/10/19 08/10/19 08/10/19 08:20 10:43 Unknown WBC RBC Hgb Hct MCV MCH MCHC RDW Plt Count Lymph % (Auto) Chaves % (Auto) Eos % (Auto) Baso % (Auto) Lymph # Chaves # Eos # Baso # Seg Neutrophils % Seg Neutrophils # Sodium Potassium Chloride Carbon Dioxide Anion Gap BUN Creatinine Estimated GFR BUN/Creatinine Ratio Glucose Lactic Acid 2.80 H* Calcium HCG, Qual Negative Influenza A (Rapid) Negative Influenza B (Rapid) Negative - Radiology Data Radiology results: report reviewed (chest x-ray), image reviewed (chest x-ray) interpreted by me: Chest x-ray-right lower lobe haziness. No pneumothorax [facility] [address] [place] [address] XRay Report Signed Patient: MEHREEN MARTELL MR#: [id number] : 1990 Acct:[id number] Age/Sex: 29 / F ADM Date: 08/10/19 Loc: ED Attending Dr: Ordering Physician: HELGA HUGGINS MD Date of Service: 08/10/19 Procedure(s): XR chest routine 2V Accession Number(s): [id number] cc: HELGA HUGGINS MD Fluoro Time In Minutes: CHEST 2 VIEWS INDICATION / CLINICAL INFORMATION: shortness of breath, cough. COMPARISON: None available. FINDINGS: SUPPORT DEVICES: None. HEART / MEDIASTINUM: No significant abnormality. LUNGS / PLEURA: There is patchy hazy parenchymal opacity in the right lower lobe. Left lung is clear. There is no pleural effusion. No pneumothorax. ADDITIONAL FINDINGS: No significant additional findings. IMPRESSION: 1. Patchy right lower lobe parenchymal opacities that may reflect developing infectious or inflammatory process. Signer Name: Rell Padilla MD Signed: 08/10/2019 9:05 AM Workstation Name: [id number] Transcribed By: NOEMÍ Dictated By: Rell Padilla MD Electronically Authenticated By: Rell Padilla MD Signed Date/Time: 08/10/19904 DD/ 3 TD/TT: - Differential Diagnosis influenza, pneumonia, asthma exacerbation Critical care attestation.: If time is entered above; I have spent that time in minutes in the direct care of this critically ill patient, excluding procedure time. ED Disposition Clinical Impression: Pneumonia, Shortness of breath Disposition: OP ADMIT IP TO THIS HOSP Is pt being admited?: Yes Does the pt Need Aspirin: Yes Condition: Fair Instructions: Bacterial Pneumonia (ED) Time of Disposition: 11:27 (hospitalist paged (Dr. Rodríguez))
[2019-08-10 08:50] VITALS: BP 100/70
[2019-08-10 08:50] LABS: Basophils % (Auto) 0.3 % (0.0-1.8); Eosinophils % (Auto) 0.2 % (0.0-4.3); Hematocrit 40.2 % (30.3-42.9); Hemoglobin 13.2 gm/dl (10.1-14.3); Lymphocytes # (Auto) 0.9 K/mm3 (1.2-5.4); Mean Corpuscular HGB Conc 33 % (30-34); Mean Corpuscular Volume 82 fl (79-97); Monocytes # (Auto) 1.2 K/mm3 (0.0-0.8); Platelet Count 306 K/mm3 (140-440); Red Blood Count 4.88 M/mm3 (3.65-5.03); Red Cell Distribution Width 14.5 % (13.2-15.2)
[2019-08-10 09:06] LABS: BUN/Creatinine Ratio 11; Blood Urea Nitrogen 8 mg/dL (7-17); Calcium 8.7 mg/dL (8.4-10.2); Hemolysis Index 1
--- NOTE | 2019-08-10 09:10 | XRay Report ---
CHEST 2 VIEWS INDICATION / CLINICAL INFORMATION: shortness of breath, cough. COMPARISON: None available. FINDINGS: SUPPORT DEVICES: None. HEART / MEDIASTINUM: No significant abnormality. LUNGS / PLEURA: There is patchy hazy parenchymal opacity in the right lower lobe. Left lung is clear. There is no pleural effusion. No pneumothorax. ADDITIONAL FINDINGS: No significant additional findings. IMPRESSION: 1. Patchy right lower lobe parenchymal opacities that may reflect developing infectious or inflammato ry process. Signer Name: Rell Padilla MD Signed: 08/10/2019 9:05 AM Workstation Name: [id number]
[2019-08-10] MEDS ORDERED: levoFLOXacin 500 MG TAB PO ONE (09:35)
[2019-08-10] MEDS ORDERED: HYDROcodone/ACETAMINOPHEN 5-325 MG TAB PO ONE (12:23)
[2019-08-10] MEDS ORDERED: SODIUM CHLORIDE 0.9% 1000 ML 1,000 ML IV SCH (13:00)
[2019-08-10] MEDS ORDERED: PSEUDOEPHEDRINE 30 MG TAB PO PRN (13:31)
--- NOTE | 2019-08-10 15:37 | Event Note ---
Date: 08/10/19 29 YO Female evaluated in ED. Pt found to have Pneumonia. Pt treated with IV antibiotic therapy. Pt medically optimized and back to usual state of health. Pneumonia Severity Index:17 points at time of discharge. Pt instructed to f/u pcp 3-5 days. Physical Exam: GENERAL: The patient is well-developed well-nourished female lying on stretcher appearing to be in moderate discomfort. [] HEENT: Normocephalic. Atraumatic. Extraocular motions are intact. Patient has moist mucous membranes. NECK: Supple. Trachea midline CHEST/LUNGS: CTA Bilaterally, Normal chest wall motion. There is no respiratory distress noted. HEART/CARDIOVASCULAR: Regular. There is tachycardia. There is no gallop rub or murmur. ABDOMEN: Abdomen is soft, nontender. Patient has normal bowel sounds. There is no abdominal distention. SKIN: There is no rash. There is no edema. There is no diaphoresis. NEURO: The patient is awake, alert, and oriented. The patient is cooperative. The patient has normal speech MUSCULOSKELETAL: There is no evidence of acute injury.
== END 2019-08-10 17:30 | disposition home or self-care (01) ==
LOC: ED 05:56 → 3A 11:55
PROVIDERS: ADMIT Internal Medicine; ATTEND Internal Medicine
DX: J18.9 Pneumonia, unspecified organism (principal); J45.909 Unspecified asthma, uncomplicated; F17.200 Nicotine dependence, unspecified, uncomplicated; F41.9 Anxiety disorder, unspecified; D64.9 Anemia, unspecified; Z98.891 History of uterine scar from previous surgery
CPT/HCPCS: 36415; 71046; 80048; 82140; 84703; 85025; 87040; 87400; 94644; 99284; G0378; J7030; J7512